=== PATIENT | female | born 1955 | race Caucasian/White ===

== ENCOUNTER 2017-06-26 07:13 | Inpatient (IN) ==
[2017-06-26] MEDS ORDERED: Lidocaine -MPF 1% 2 ML VIAL ID ONE (07:53)
[2017-06-26] MEDS ORDERED: Albuterol 2.5 MG/3 ML NEBULIZER IH ONE (07:53)
[2017-06-26] MEDS: Ringers Solution, Lactated 1,000 ML IVC SCH (07:54)
[2017-06-26] MEDS ORDERED: Clindamycin 600 MG/50 ML 600 MG/50 ML IV.SOLN IVPB ONE ×2 (08:00→08:15)
[2017-06-26] MEDS ORDERED: *HR* FentaNYL (PF) 250 MCG/5 ML VIAL ONE (08:39)
[2017-06-26] MEDS ORDERED: *HR* Midazolam HCl 5 MG/5 ML VIAL IVP ONE (08:39)
[2017-06-26] MEDS ORDERED: *HR* Propofol 200 MG/20 ML VIAL IVP ONE (08:39)
[2017-06-26] MEDS ORDERED: *HR* PHENYLEPHRINE 1,000 MCG/10 ML SYRINGE IVP ONE ×3 (08:40→10:24)
[2017-06-26] MEDS ORDERED: *HR* Rocuronium Bromide 50 MG/5 ML VIAL ONE ×2 (08:40→10:24)
--- NOTE | 2017-06-26 08:42 | History & Physical Report ---
Date of Encounter: 06/26/17 Time of Encounter: 08:41 24 Hour HP Update - Instructions Instructions: If the History and Physical is less than 30 days old and was completed prior to A.M. admission and or procedure and has NOT been updated on calendar day of procedure please complete this update prior to performing procedure. - Update Patient reports changes in Medical Condition: No Changes in examination, assessment, or condition: No Changes in Medication: No Preop tests/diagnostics Reviewed: Yes Pre-Op MRSA Screen: Negative Surgery Remains Indicated: Yes Consent for Planned Operative Procedure(s) Verified: Yes - Pre-Operative Checklist Preoperative Checklist Indicated: Yes Prophylactic Antibiotic Ordered: Yes Home Medications Include Beta Jenae: No Beta Jenae Taken Today (Day of Surgery): No Beta Jenae Taken Yesterday (Day Prior to Surgery): No Is VTE Prophylaxis Indicated?: Yes
[2017-06-26] MEDS ORDERED: Heparin 1,000 UNITS/500 mL 500 ML ONE (08:46)
--- NOTE | 2017-06-26 08:49 | Anesthesia Evaluation PreOp ---
Date of Encounter: 06/26/17 Time of Encounter: 08:47 - Past History Planned Operation: right thoracotomy, lower lobectomy Cardiac History: HTN Pulmonary History: Smoker (2ppd), Pack/yr (>70), COPD BOBBIN FIXER History: Denies Any Significant HX Other Medical History: Thyroid (hypo) Anesthesia History: No Prior Anesthetic Complications, Past Anesthesia (D&C, tubal) Alcohol Use: none Drug use: marijuana Medications and Allergies Paroxetine [Paxil] 20 mg PO DAILY 06/14/17 [History] Tizanidine HCl [Zanaflex] 4 mg PO TID 06/14/17 [History] LORazepam [Ativan] 0.5 mg PO DAILY PRN 06/26/17 [History] Levothyroxine [Synthroid] 50 mcg PO 0630 06/26/17 [History] Lisinopril-HCTZ 20-12.5 [Prinzide 20-12.5] 1 tab PO DAILY 06/26/17 [History] Olodaterol HCl [Striverdi Respimat] 1 puff IH DAILY 06/26/17 [History] 3 Allergy/AdvReac Type Severity Reaction Status Date / Time gabapentin Allergy Rash Verified 06/26/17 07:44 Penicillins Allergy Hives Verified 06/26/17 07:44 pregabalin [From Lyrica] Allergy Rash Verified 06/26/17 07:44 - Meds/Allergy Pre-op Review Medications Reviewed: Yes Allergies Reviewed: Yes Beta Blockers on Current Med List: No Anesthesia Results - Labs Laboratory Tests 06/06/17 06/14/17 06/14/17 10:11 09:52 09:52 Hgb 14.8 Hct 44.1 Plt Count 224 PT 11.0 INR 1.0 Sodium 137 Potassium 3.7 BUN 18 Creatinine 0.92 - Imaging EKG: report reviewed (SINUS BRADYCARDIA INDETERMINATE AXIS POSSIBLE RIGHT VENTRICULAR CONDUCTION DELAY LEFT ANTERIOR FASCICULAR BLOCK POOR R WAVE PROGRESSION) Additional studies: PFTs: Spirometry shows mild airway restrictive disease. No response to inhaled bronchodilators is seen MVV is decreased. Increased residual Lung Volumes reveal hyperinflation and air trapping. Diffusion Capacity is moderately reduced. Flow Volume Loop: Obstructive Anesthesia Exam Selected Entries 06/26/17 07:42 Temperature 97.6 F Pulse Rate 60 Respiratory Rate 18 Blood Pressure 124/63 O2 Sat by Pulse Oximetry 95 Weight: 81kg NPO (# of Hours): 8 - HEENT Pupil (Motor): EOMI Mallampati: II Teeth: Edentulous Oral Opening: Greater than 3 - BOBBIN FIXER LOC: Oriented BOBBIN FIXER Motor: Normal RUE, Normal LUE, Normal RLE, Normal LLE, Normal Face BOBBIN FIXER Sensory: Normal: RUE, LUE, RLE, LLE, Face - Cardiac Rhythm: Regular Murmur: None - Pulmonary Breath Sounds: bilateral Clear Respiratory Effort: Symmetrical Anesthesia Assess/Plan ASA Score: 3 Modified [place] Scale for Level of Consciousness: Cooperative, oriented, and tranquil Anesthetic Plan: General Monitoring Plan: Standard Monitors, A-Line Recovery Plan: PACU (agrees to GA, a-line and epidural. Aware she may require prolonged intubation)
[2017-06-26] MEDS ORDERED: Morphine Sulfate/PF 10mg/10mL 10 MG, Bupivacaine-MPF 0.25% 125 ML in 0.9 % Sodium Chlor... EP SCH (09:30)
[2017-06-26] MEDS ORDERED: MORPHINE SULFATE EP SCH (09:45)
[2017-06-26] MEDS ORDERED: BUPIVACAINE MPF EP SCH (09:45)
[2017-06-26] MEDS ORDERED: [UNRECOGNIZED DRUG - OTHER] EP SCH (09:45)
--- NOTE | 2017-06-26 10:35 | Anesthesia Procedures ---
Date of Encounter: 06/26/17 Time of Encounter: 09:00 Procedures: Anesthesia - Arterial Line Consent obtained: written consent Time out performed: Yes Sedation: Versed (mg): 3 Sedation: Fentanyl (mcg): 100 Supplemental Oxygen via Nasal Cannula (L/min): 2 Size (Gauge): 20 Length (inches): 1 3/4 Technique Used: sterile prep, guide wire technique, direct puncture technique Post-Procedure: line taped into place, dry sterile dressing placed Patient tolerated procedure: well, no complications Complications: none Site: Radial L - Epidural/Spinal Patient ID/Chart reviewed: Yes Patient examined: Yes Sedation: Versed (mg): 3 Sedation: Fentanyl (mcg): 100 Site Prep: Aseptic Technique, Sterile prep and drape, Povidone-Iodine 1% Patient position: upright Local Anesthetic: Lidocaine 1% Amount of Local Anesthetic used: 5 Touhy Needle Gauge: 18 Test Dose (1.5% Lido + Epi): Volume given (mls): 3 Test Dose Result: Negative Loading Dose: 0.25% Marcaine (mls): 10 Loading Dose: Fentanyl (mcg): [address]: Tegaderm Interspace Used: T5-T6 Loss of Resistance (BRENNON): Yes Blood: No CSF: No Paresthesia: No Procedure: Epidural for post op pain management. Good BRENNON. Catheter inserted approx 4cm into epidural space. Paramedian approach used.
[2017-06-26] MEDS ORDERED: Ketorolac 30 MG/ML VIAL ONE (11:12)
[2017-06-26] MEDS ORDERED: Dexamethasone 4 MG/ML VIAL ONE (11:12)
[2017-06-26] MEDS ORDERED: Ondansetron 4 MG/2 ML VIAL ONE (11:12)
[2017-06-26] MEDS ORDERED: Acetaminophen IV 1,000 MG/100 ML INFUS..BTL ONE (11:17)
[2017-06-26] MEDS ORDERED: *HR* Atropine Sulfate 1 MG/10 ML SYRINGE ONE (12:29)
[2017-06-26] MEDS ORDERED: *HR* Morphine 2 MG/ML SYRINGE IVP PRN ×2 (12:52→13:14)
[2017-06-26] MEDS ORDERED: *HR* OxyCODONE/APAP 5/325 TABLET PO PRN (12:52)
[2017-06-26] MEDS ORDERED: *HR* Nalbuphine 20 MG/ML AMPUL IVP PRN (12:52)
[2017-06-26] MEDS ORDERED: Naloxone 0.4 MG/ML INJ IVP PRN ×2 (12:57)
[2017-06-26] MEDS ORDERED: *HR* OxyCODONE Immed Rel 5 MG TABLET PO PRN (13:00)
[2017-06-26] MEDS ORDERED: 0.9 % Sodium Chloride w KCl 20 MEQ/1,000 ML MLS IVC SCH (13:00)
[2017-06-26] MEDS ORDERED: *HR* Dextrose 50 % in Water (Syg) 50 ML SYRINGE IVP PRN (13:02)
[2017-06-26] MEDS ORDERED: Dextrose Gel 15 GM/37.5 ML TUBE PO PRN ×2 (13:02)
[2017-06-26] MEDS ORDERED: D5% in Water 1,000 ML IVC PRN (13:02)
[2017-06-26] MEDS: Ketorolac 15 MG/ML VIAL IVP PRN ×2 (13:12→19:31)
--- NOTE | 2017-06-26 13:16 | Operative Note ---
Date of procedure: 06/26/17 Was there an payroll human resources assistant present: Yes Hse Specialist: Kimo Grider Estimated blood loss (cc): 500 Specimen: hilar and mediastinal lumph nodes, Rt. lowwer lobe Condition: stable Disposition: ICU Procedure in Detail: Preoperative diagnosis. Lung cancer. Postoperative diagnosis. Same. Procedures. Right posterolateral thoracotomy with right lower lobectomy. Surgeon. Dr. Petey Stephens. Hse Specialist. Kimo Grider. The patient is a 61-year -old female with a long history of smoking. She presented with a cavitary mass in her right lower lobe. CAT scan was negative for any adenopathy. PET scan was positive in the mass, but nowhere else. Needle biopsy revealed non-small cell carcinoma. Pulmonary function tests were adequate for resection. She was brought to the operating room where she underwent a general anesthetic and was prepped and draped with the right side up. She did have an epidural catheter for pain control. A standard right posterolateral thoracotomy was performed. Serratus anterior and latissimus dorsi muscles were divided with the Bovie electrocoagulation. The fifth intercostal space was selected and intercostal musculature was bovied off the top of the sixth rib. The lung was deflated. There was a palpable mass in the right lower lobe. No other palpable adenopathy or masses in the chest. Dissection began down into the fissure. The branch to the basilar segments was isolated first. Proximally it was ligated with an 0 silk suture and an 0 silk suture ligature. Distally it was tied off with an 0 silk suture. It was then divided. Next we isolated the branch to the superior segment. Proximally it was ligated with an 0 silk suture and 0 silk suture ligature. Distally it was ligated with an 0 silk suture. It was then divided. Dissection next continued down to the inferior pulmonary vein. The inferior pulmonary ligament was taken up and the inferior pulmonary vein was isolated. Distally it was tied off with an 0 silk suture. Proximally it was ligated with the TA-30 vascular stapling device. It was then divided. The anterior fissure was incomplete and this was divided with a TA-30 nonvascular stapling device. The bronchus in the posterior fissure were divided using a TA 60 nonvascular stapling device. The bronchus was somewhat calcified. The specimen was removed and sent for frozen section for the bronchial margin. The bronchial margin was negative. We then proceeded to biopsy numerous hilar and mediastinal lymph nodes. These were all sent for permanent section. We did place a small piece of fibrillar in the superior mediastinum for hemostasis. We did not place intercostal blocks as the patient had an epidural catheter. We did instill warm saline into the chest. The lung was inflated and there were no significant air leaks. 2 chest tubes were inserted. A 36 straight to the apex of the chest. A 32 right angle chest tube to the bottom of the chest. Intercostal sews were made out of #1 Vicryl in [id number] fashion. Serratus anterior and latissimus dorsi muscles were sewn with #1 Vicryl. Subcutaneous tissues with a 2-0 Vicryl. Skin was closed with a 3-0 Vicryl subcuticular stitch. The patient tolerated the procedure well and was returned intensive care unit in satisfactory and stable condition.
[2017-06-26 13:28] LABS: Hematocrit 41.3 % (35.3-44.9); Hemoglobin 13.1 g/dL (11.5-15.4); Mean Corpuscular HGB Conc 31.7 g/dL (31.6-35.5); Mean Corpuscular Hemoglobin 29.3 pg (28.0-33.3); Mean Corpuscular Volume 92.4 fL (83.0-100.0); Mean Platelet Volume 11.4 fL (9.4-12.4); Platelet Count 246 K/mcL (140-400); Red Blood Count 4.47 M/mcL (3.82-4.97); Red Cell Distribution Width 12.8 % (11.5-14.5)
[2017-06-26] MEDS ORDERED: *HR* Atropine Sulfate 1 MG/10 ML SYRINGE IVP PRN (13:29)
[2017-06-26 13:50] LABS: Lymphocytes # 2.5 K/mcL (0.6-4.6); Monocytes # 1.5 K/mcL (0.0-1.3); Neutrophils # 21.1 K/mcL (1.6-8.9); Platelet Estimate Normal (Normal)
[2017-06-26] MEDS ORDERED: Albumin Human 5% 25.0 GM/500 ML VIAL ONE (15:00)
[2017-06-26 15:38] LABS: ABG Base Excess 0 mEq/L (-2 to 3); ABG HCO3 28 mEq/L (21-27); ABG Oxygen Saturation 95 % (95-98); ABG PCO2 60 mmHg (35-45); ABG PH 7.28 pH Units (7.32-7.45); ABG PO2 87 mmHg (85-104); ABG TCO2 30 mEq/L (20-26)
[2017-06-26] MEDS: Clindamycin 900 MG/50 ML 900 MG/50 ML IV.SOLN IVPB SCH (16:07)
[2017-06-26] MEDS: Insulin LISPRO 300 UNITS/3 ML VIAL SQ SCH (16:12)
[2017-06-26 17:32] LABS: BUN/Creatinine Ratio 24 (6-26); Blood Urea Nitrogen 20 mg/dL (8-23); Calcium 9.2 mg/dL (8.6-10.3); Carbon Dioxide 23 mEq/L (23-29); Chloride 109 mEq/L (98-107); Glucose 162 mg/dL (70-105); Osmolality,Calculated 296 (280-300); Sodium 140 mEq/L (136-145); eGFR For African Americans > 60 (> 60); eGFR For Non-African Americans > 60 (> 60)
[2017-06-26] MEDS: 0.9 % Sodium Chloride w KCl 20 MEQ/1,000 ML MLS IVC SCH (20:22)
[2017-06-26] MEDS ORDERED: Insulin LISPRO 300 UNITS/3 ML VIAL SQ SCH (21:00)
[2017-06-27] MEDS: Clindamycin 900 MG/50 ML 900 MG/50 ML IV.SOLN IVPB SCH (00:01)
[2017-06-27] MEDS: *HR* Promethazine 25 MG/ML VIAL IVP PRN ×2 (02:12→07:43)
[2017-06-27] MEDS: 0.9 % Sodium Chloride w KCl 20 MEQ/1,000 ML MLS IVC SCH (03:25)
[2017-06-27 03:51] LABS: Hematocrit 33.1 % (35.3-44.9); Immature Granulocytes % 0.4 % (0-4); Lymphocytes # 1.2 K/mcL (0.6-4.6); Lymphocytes % 10.2 %; Mean Corpuscular HGB Conc 32.9 g/dL (31.6-35.5); Mean Corpuscular Hemoglobin 29.5 pg (28.0-33.3); Mean Corpuscular Volume 89.5 fL (83.0-100.0); Mean Platelet Volume 11.7 fL (9.4-12.4); Monocytes # 0.8 K/mcL (0.0-1.3); Monocytes % 6.7 %; Neutrophils # 9.8 K/mcL (1.6-8.9); Platelet Count 181 K/mcL (140-400); Segmented Neutrophils % 82.7 %
[2017-06-27 03:52] LABS: Hemoglobin 10.9 g/dL (11.5-15.4)
[2017-06-27 04:00] LABS: BUN/Creatinine Ratio 30 (6-26); Blood Urea Nitrogen 21 mg/dL (8-23); Carbon Dioxide 24 mEq/L (23-29); Chloride 110 mEq/L (98-107); Glucose 117 mg/dL (70-105); Osmolality,Calculated 292 (280-300); Potassium 4.5 mEq/L (3.5-5.1); Sodium 139 mEq/L (136-145); eGFR For African Americans > 60 (> 60); eGFR For Non-African Americans > 60 (> 60)
[2017-06-27 04:58] LABS: ABG Base Excess -2 mEq/L (-2 to 3); ABG HCO3 25 mEq/L (21-27); ABG Oxygen Saturation 93 % (95-98); ABG PCO2 50 mmHg (35-45); ABG PO2 74 mmHg (85-104); ABG TCO2 26 mEq/L (20-26)
[2017-06-27] MEDS: Insulin LISPRO 300 UNITS/3 ML VIAL SQ SCH ×4 (07:43→20:00)
[2017-06-27] MEDS: Ringers Solution, Lactated 1,000 ML IVC SCH ×2 (07:43→11:21)
--- NOTE | 2017-06-27 08:32 | Cardiothoracic Progress Note ---
Date of Encounter: 06/27/17 Time of Encounter: 08:30 - Assessment and plan (1) Lung cancer Current Visit: Yes Status: Acute The assessment and plan as outlined above was discussed with the patient and/or family members who expressed understanding and agreement. All questions were answered. The patient is doing well. Her pain is well controlled. We will transfer her to the floor when a bed becomes available. We will discontinue her Bai catheter and arterial line. Qualifiers: Laterality: right Lung location: lower lobe of lung Qualified Code(s): C34.31 - Malignant neoplasm of lower lobe, right bronchus or lung (2) Primary lung cancer Current Visit: Yes Status: Acute The assessment and plan as outlined above was discussed with the patient and/or family members who expressed understanding and agreement. All questions were answered. Qualifiers: Laterality: right Qualified Code(s): C34.91 - Malignant neoplasm of unspecified part of right bronchus or lung - Subjective Interval history: The patient has mild postoperative pain which is well controlled with the epidural catheter. Vital Signs, Last 4 Hours Pulse Resp BP Pulse Ox 06/27/17 07:00 63 16 98/64 96 06/27/17 06:00 59 16 115/59 95 06/27/17 05:00 56 18 121/63 95 Oxgyen Flow Rate Oxygen Flow Rate (LPM) 3 Clinical Data, last 8 Hours Output, Chest Tube Drainage 30 Amount [Chest tube 2] Output, Chest Tube Drainage 7 Amount [Chest tube 2] Output, Chest Tube Drainage 70 Amount [Chest tube 1] Output, Chest Tube Drainage 50 Amount [Chest tube 1] Weight 06/25/17 06/26/17 06/27/17 23:59 23:59 23:59 Weight 81.193 kg Lungs are clear to percussion and auscultation. Heart is in a normal sinus rhythm with a heart rate in the 50s. She had episodes of sinus bradycardia yesterday, but these were asymptomatic. The chest tubes had minimal drainage, but do have a small air leak. - Labs 06/27/17 03:25 06/27/17 03:25 Lab Results, Last 24 hours 06/26/17 06/26/17 06/27/17 13:13 13:18 03:25 WBC 25.1 H 11.8 H D Hgb 13.1 10.9 L D Hct 41.3 33.1 L Plt Count 246 181 Sodium 140 Potassium 4.0 Chloride 109 H Carbon Dioxide 23 BUN 20 Creatinine 0.84 Glucose 162 H Calcium 9.2 06/27/17 03:25 WBC Hgb Hct Plt Count Sodium 139 Potassium 4.5 Chloride 110 H Carbon Dioxide 24 BUN 21 Creatinine 0.71 Glucose 117 H Calcium 8.0 L - VTE Documentation of Mechanical Device: Intermittent pneumatic compression device Consult Discharge Plan - Plan Referrals: Nicholas Robb MD [Primary Care Provider] -
[2017-06-27] MEDS ORDERED: *HR* Nalbuphine 20 MG/ML AMPUL IVP PRN (09:18)
[2017-06-27] MEDS ORDERED: *HR* Atropine Sulfate 1 MG/10 ML SYRINGE IVP PRN (09:18)
[2017-06-27] MEDS ORDERED: *HR* Dextrose 50 % in Water (Syg) 50 ML SYRINGE IVP PRN (09:18)
[2017-06-27] MEDS ORDERED: D5% in Water 1,000 ML IVC PRN (09:18)
[2017-06-27] MEDS ORDERED: Naloxone 0.4 MG/ML INJ IVP PRN (09:18)
[2017-06-27] MEDS ORDERED: Dextrose Gel 15 GM/37.5 ML TUBE PO PRN ×2 (09:18)
--- NOTE | 2017-06-27 10:28 | Anesthesia Evaluation Post Op ---
Date of Encounter: 06/27/17 Time of Encounter: 10:26 - Vital Signs Vital Signs: Selected Entries 06/27/17 08:00 06/27/17 10:00 Temperature 97.1 F L Pulse Rate 57 Respiratory Rate 17 Blood Pressure 109/56 O2 Sat by Pulse Oximetry 94 Oxygen Flow Rate (LPM) 3 - Lungs Lungs: Clear Ascult./Percussion - Airway Airway: Non-obstructed - Cardiovascular Regular Rate (bradycardi) - Mental Status Mental Status: Alert & Oriented, Answers Appropriately - Pain Pain Scale: 2 Pain Scale used: Numeric (1 - 10) - Nausea Vomiting Nausea Vomiting: Not Present - Hydration Hydration: Tolerates oral liquids, Able to void (epidural site intact. Pain control is good. Hasn't required BTP meds) - Discharge PostOp Status: Transfer Patient to floor (per CT surgery)
[2017-06-27] MEDS: *HR* Morphine 2 MG/ML SYRINGE IVP PRN ×2 (11:22→16:05)
[2017-06-27] MEDS: tiZANidine 4 MG TABLET PO SCH ×3 (11:27→23:08)
[2017-06-27] MEDS: Albuterol 2.5 MG/3 ML NEBULIZER IH SCH ×5 (16:17→23:29)
[2017-06-27] MEDS: *HR* Heparin 5,000 UNIT/ML VIAL SQ SCH (18:40)
[2017-06-27] MEDS: *HR* OxyCODONE/APAP 5/325 TABLET PO PRN ×2 (19:58→23:55)
[2017-06-27] MEDS: MORPHINE SULFATE EP SCH (19:59)
[2017-06-27] MEDS: Ketorolac 15 MG/ML VIAL IVP PRN (19:59)
[2017-06-27] MEDS: [UNRECOGNIZED DRUG - OTHER] EP SCH (19:59)
[2017-06-27] MEDS: BUPIVACAINE MPF EP SCH (19:59)
[2017-06-28] MEDS: *HR* Promethazine 25 MG/ML VIAL IVP PRN (03:31)
[2017-06-28] MEDS: Albuterol 2.5 MG/3 ML NEBULIZER IH SCH ×5 (04:10→19:47)
[2017-06-28 04:12] LABS: Basophils % 0.2 %; Eosinophils % 0.1 %; Hematocrit 35.9 % (35.3-44.9); Hemoglobin 11.6 g/dL (11.5-15.4); Immature Granulocytes % 0.3 % (0-4); Lymphocytes # 1.8 K/mcL (0.6-4.6); Lymphocytes % 16.7 %; Mean Corpuscular HGB Conc 32.3 g/dL (31.6-35.5); Mean Corpuscular Hemoglobin 29.1 pg (28.0-33.3); Mean Corpuscular Volume 90.2 fL (83.0-100.0); Mean Platelet Volume 11.5 fL (9.4-12.4); Monocytes # 0.8 K/mcL (0.0-1.3); Monocytes % 7.1 %; Neutrophils # 7.9 K/mcL (1.6-8.9); Platelet Count 170 K/mcL (140-400); Red Blood Count 3.98 M/mcL (3.82-4.97); Red Cell Distribution Width 12.9 % (11.5-14.5); Segmented Neutrophils % 75.6 %
[2017-06-28] MEDS: *HR* OxyCODONE/APAP 5/325 TABLET PO PRN ×4 (04:23→20:55)
[2017-06-28 04:26] LABS: BUN/Creatinine Ratio 22 (6-26); Blood Urea Nitrogen 17 mg/dL (8-23); Calcium 8.8 mg/dL (8.6-10.3); Carbon Dioxide 27 mEq/L (23-29); Chloride 104 mEq/L (98-107); Glucose 122 mg/dL (70-105); Osmolality,Calculated 287 (280-300); Potassium 3.8 mEq/L (3.5-5.1); Sodium 137 mEq/L (136-145); eGFR For African Americans > 60 (> 60); eGFR For Non-African Americans > 60 (> 60)
[2017-06-28] MEDS: *HR* Heparin 5,000 UNIT/ML VIAL SQ SCH ×2 (06:56→16:02)
--- NOTE | 2017-06-28 07:49 | Cardiothoracic Progress Note ---
Date of Encounter: 06/28/17 Time of Encounter: 07:47 - Assessment and plan (1) Lung cancer Current Visit: Yes Status: Acute The patient is recovering well from her right thoracotomy with right lower lobe lung resection. The pathology is pending. The patient is breathing comfortably with supplemental oxygen. She should continue with aggressive pulmonary toilet and should begin ambulating on suction today. The assessment and plan as outlined above was discussed with the patient and/or family members who expressed understanding and agreement. All questions were answered. Qualifiers: Laterality: right Lung location: lower lobe of lung Qualified Code(s): C34.31 - Malignant neoplasm of lower lobe, right bronchus or lung - Subjective Procedure(s) Performed: POD#2 S/P Right thoracotomy with right lower lobe resection Interval history: The patient is resting comfortably in her hospital bed. She has minimal postoperative pain and this is being addressed with the epidural and intermittent by oral analgesics. She is breathing comfortably. Vital Signs, Last 4 Hours Temp Pulse Resp BP Pulse Ox 06/28/17 07:40 98.3 F 65 17 130/72 97 06/28/17 04:24 98.7 F 69 17 128/63 97 06/28/17 04:11 16 98 Oxgyen Flow Rate Oxygen Flow Rate (LPM) 4 Clinical Data, last 8 Hours Output, Chest Tube Drainage 26 Amount [Chest tube 2] Output, Chest Tube Drainage 15 Amount [Chest tube 2] Output, Chest Tube Drainage 40 Amount [Chest tube 1] Output, Chest Tube Drainage 20 Amount [Chest tube 1] Weight 06/26/17 06/27/17 06/28/17 23:59 23:59 23:59 Weight 81.193 kg - Physical Examination General: Conversant, No Apparent Distress Cardiac: Reg Rate and Rhythm Incision: No signs of infection, Dry/intact dressing Chest tubes: Minimal drainage, Air leak (Small air leak in chest tube #1) Lungs: Normal Breath Sounds, No Wheeze, Rales, Rhonchi Neuro: Alert and responsive, No focal deficits noted Vascular: Normal capillary refill Extremities: No Clubbing, No Cyanosis, No Edema - Labs 06/28/17 03:45 06/28/17 03:45 Lab Results, Last 24 hours 06/28/17 06/28/17 03:45 03:45 WBC 10.5 Hgb 11.6 Hct 35.9 Plt Count 170 Sodium 137 Potassium 3.8 Chloride 104 Carbon Dioxide 27 BUN 17 Creatinine 0.77 Glucose 122 H Calcium 8.8 - VTE Documentation of Mechanical Device: Intermittent pneumatic compression device Consult Discharge Plan - Plan Referrals: Nicholas Robb MD [Primary Care Provider] - 07/05/17 2:30 pm Petey Stephens MD [Partnered Physician] - 07/25/17 2:00 pm
[2017-06-28] MEDS: tiZANidine 4 MG TABLET PO SCH ×3 (08:20→20:27)
[2017-06-28] MEDS: Insulin LISPRO 300 UNITS/3 ML VIAL SQ SCH ×4 (08:28→20:29)
[2017-06-28] MEDS: Ringers Solution, Lactated 1,000 ML IVC SCH (08:30)
--- NOTE | 2017-06-28 10:20 | Anesthesia Progress Note ---
Date of Encounter: 06/28/17 Time of Encounter: 10:17 Anesthesia Note - Note Note: 06/28/17 10:17 Post op day #2 right thoracotomy/lobe resection. Epidural site intact, nontender and no erythema. Small amount of blood under the dressing, no change in 24 hours. Pain well controlled. Patient is mildly somnolent. Vital signs are stable, patient afebrile. Still has chest tube and tomlin in place. Will continue current therapy. 06/28/17 10:20
[2017-06-28] MEDS: *HR* Morphine 2 MG/ML SYRINGE IVP PRN (19:31)
[2017-06-29] MEDS: Albuterol 2.5 MG/3 ML NEBULIZER IH SCH ×7 (00:28→23:42)
[2017-06-29] MEDS: *HR* OxyCODONE/APAP 5/325 TABLET PO PRN ×4 (00:49→20:24)
[2017-06-29] MEDS: *HR* Morphine 2 MG/ML SYRINGE IVP PRN ×2 (03:09→07:52)
[2017-06-29] MEDS: BUPIVACAINE MPF EP SCH ×2 (03:10→11:38)
[2017-06-29] MEDS: [UNRECOGNIZED DRUG - OTHER] EP SCH ×2 (03:10→11:38)
[2017-06-29] MEDS: MORPHINE SULFATE EP SCH ×2 (03:10→11:38)
[2017-06-29] MEDS: *HR* Heparin 5,000 UNIT/ML VIAL SQ SCH ×2 (05:28→18:13)
[2017-06-29 06:21] LABS: Basophils % 0.4 %; Eosinophils # 0.1 K/mcL (0.0-0.6); Eosinophils % 1.1 %; Hemoglobin 11.2 g/dL (11.5-15.4); Immature Granulocytes % 0.2 % (0-4); Lymphocytes # 2.1 K/mcL (0.6-4.6); Lymphocytes % 25.9 %; Mean Corpuscular Hemoglobin 29.4 pg (28.0-33.3); Mean Corpuscular Volume 91.9 fL (83.0-100.0); Mean Platelet Volume 11.4 fL (9.4-12.4); Monocytes # 0.6 K/mcL (0.0-1.3); Monocytes % 7.4 %; Neutrophils # 5.3 K/mcL (1.6-8.9); Platelet Count 168 K/mcL (140-400); Red Blood Count 3.81 M/mcL (3.82-4.97)
[2017-06-29 06:41] LABS: BUN/Creatinine Ratio 14 (6-26); Blood Urea Nitrogen 10 mg/dL (8-23); Calcium 8.9 mg/dL (8.6-10.3); Carbon Dioxide 30 mEq/L (23-29); Chloride 104 mEq/L (98-107); Glucose 109 mg/dL (70-105); Osmolality,Calculated 286 (280-300); Potassium 3.7 mEq/L (3.5-5.1); Sodium 138 mEq/L (136-145); eGFR For African Americans > 60 (> 60); eGFR For Non-African Americans > 60 (> 60)
[2017-06-29] MEDS: Insulin LISPRO 300 UNITS/3 ML VIAL SQ SCH ×4 (07:31→20:24)
[2017-06-29] MEDS: tiZANidine 4 MG TABLET PO SCH ×3 (07:52→20:23)
--- NOTE | 2017-06-29 10:25 | Anesthesia Procedures ---
Date of Encounter: 06/29/17 Time of Encounter: 10:28 Procedures: Anesthesia - Epidural Rounding Post Op Day #: 3 Procedure: right thoracotomy Pain Control: Adequate Breakthrough Pain Meds: Yes Vital Signs: Vital Signs/O2 Sat, Most Current Temp Pulse Resp BP Pulse Ox 98.1 F 64 18 126/69 96 06/29/17 07:09 06/29/17 07:55 06/29/17 07:38 06/29/17 07:09 06/29/17 07:38 Mental Status: responsive, sedated, Comment: (somnolent but easily arousible) Catheter Site Dressing Intact: Yes (dressing ends curling, additional tegaderm applied) Erythema: No Pruritus: present, tolerable Signs of Infection At Catheter Site: No Plan: Continue current rate
[2017-06-29] MEDS: Ringers Solution, Lactated 1,000 ML IVC SCH (11:38)
--- NOTE | 2017-06-29 12:41 | Cardiothoracic Progress Note ---
Date of Encounter: 06/29/17 Time of Encounter: 12:39 Discussion with patient/family: Discussed planned for increased activity will leave chest tubes to suction while at bedside. May ambulate on waterseal discussed plan with the patient, daughter and nursing at bedside.. - Subjective Procedure(s) Performed: Patient seen and examined. She is sitting up in bed with her daughter bedside. Nursing staff she is postoperative day 3 from a right lower lobectomy. She has no epidural in place with acceptable pain control. Discussed plans for getting out of bed for meals and ambulating in [place] on waterseal. Currently chest tubes are to suction. Discussed plans for increased activity increased coughing, deep breathing and use incentive spirometer with patient and daughter. Vital Signs, Last 4 Hours Temp Pulse Resp BP Pulse Ox 06/29/17 11:33 18 98 06/29/17 11:18 97.7 F 59 16 96/48 97 Oxgyen Flow Rate Oxygen Flow Rate (LPM) 2 Clinical Data, last 8 Hours Output, Chest Tube Drainage 20 Amount [Chest tube 2] Output, Chest Tube Drainage 20 Amount [Chest tube 1] - Physical Examination Sternum: Other Pacing Wires: Other (Both chest tubes to suction, small notable air leak in 1 tube, both with serous drainage) - Labs 06/29/17 06:00 06/29/17 06:00 Lab Results, Last 24 hours 06/29/17 06/29/17 06:00 06:00 WBC 8.2 Hgb 11.2 L Hct 35.0 L Plt Count 168 Sodium 138 Potassium 3.7 Chloride 104 Carbon Dioxide 30 H BUN 10 Creatinine 0.69 Glucose 109 H Calcium 8.9 - Imaging Chest Xray: other (Chest x-ray reviewed tubes in good position no obvious pneumothorax) - VTE Documentation of Mechanical Device: Intermittent pneumatic compression device Consult Discharge Plan - Plan Referrals: Nicholas Robb MD [Primary Care Provider] - 07/05/17 2:30 pm Petey Stephens MD [Partnered Physician] - 07/25/17 2:00 pm
[2017-06-29] MEDS: Ketorolac 15 MG/ML VIAL IVP PRN (18:13)
[2017-06-30] MEDS: *HR* OxyCODONE/APAP 5/325 TABLET PO PRN ×4 (00:58→17:03)
[2017-06-30] MEDS: Albuterol 2.5 MG/3 ML NEBULIZER IH SCH ×7 (03:44→19:35)
[2017-06-30] MEDS: *HR* Heparin 5,000 UNIT/ML VIAL SQ SCH ×2 (05:54→17:03)
[2017-06-30] MEDS: tiZANidine 4 MG TABLET PO SCH ×3 (08:23→20:01)
[2017-06-30] MEDS: Ketorolac 15 MG/ML VIAL IVP PRN ×2 (08:24→18:55)
[2017-06-30] MEDS: Insulin LISPRO 300 UNITS/3 ML VIAL SQ SCH ×4 (08:25→20:01)
[2017-06-30] MEDS: BUPIVACAINE MPF EP SCH (09:45)
[2017-06-30] MEDS: MORPHINE SULFATE EP SCH (09:45)
[2017-06-30] MEDS: [UNRECOGNIZED DRUG - OTHER] EP SCH (09:45)
--- NOTE | 2017-06-30 11:15 | Cardiothoracic Progress Note ---
Date of Encounter: 06/30/17 Time of Encounter: 11:13 Discussion with patient/family: Discussed plan for increased activity, regular use of incentive spirometer, weaning oxygen as tolerated. Will leave chest tubes to suction. - Subjective Procedure(s) Performed: Patient seen and examined. Had uneventful night according to patient and report from nursing staff. Notably blood pressure was a little low this morning however now improved. Patient up in chair and denies any lightheadedness or dizziness. Her pain is under reasonable control with her epidural and supplemental pain meds for breakthrough pain. She has not had a bowel movement yet but is receiving suppositories. Her chest tubes demonstrated minimal drainage small persistent intermittent air leak and on suction at this time. Wound remained clean and dry. Discussed the importance of increased activity and weaning oxygen as tolerated. Currently on 2 L nasal cannula sats in the mid 90s. Vital Signs, Last 4 Hours Temp Pulse Resp BP Pulse Ox 06/30/17 10:51 55 74/44 95 06/30/17 10:15 57 78/54 06/30/17 10:10 70/40 06/30/17 10:05 60 70/47 96 06/30/17 08:20 80 105/56 95 06/30/17 07:41 18 95 06/30/17 07:27 98.1 F 73 18 126/66 94 Oxgyen Flow Rate Oxygen Flow Rate (LPM) 2 Clinical Data, last 8 Hours Output, Chest Tube Drainage 30 Amount [Chest tube 2] Output, Chest Tube Drainage 0 Amount [Chest tube 2] Output, Chest Tube Drainage 20 Amount [Chest tube 1] Output, Chest Tube Drainage 0 Amount [Chest tube 1] Weight 06/28/17 06/29/17 06/30/17 23:59 23:59 23:59 Weight 80.9 kg - Physical Examination Incision: Other (Dressings intact, clean and dry) Chest tubes: Other (2 chest tubes to suction, one with small intermittent air leak minimal serous drainage) - Labs 06/29/17 06:00 06/29/17 06:00 - VTE Documentation of Mechanical Device: Intermittent pneumatic compression device Consult Discharge Plan - Plan Referrals: Nicholas Robb MD [Primary Care Provider] - 07/05/17 2:30 pm Petey Stephens MD [Partnered Physician] - 07/25/17 2:00 pm
--- NOTE | 2017-06-30 16:43 | Anesthesia Procedures ---
Date of Encounter: 06/30/17 Time of Encounter: 16:41 Procedures: Anesthesia - Epidural Rounding Post Op Day #: 4 Procedure: right thoracotomy Pain Control: Adequate Breakthrough Pain Meds: Yes Vital Signs: Vital Signs/O2 Sat, Most Current Temp Pulse Resp BP Pulse Ox 98.1 F 75 16 111/69 93 06/30/17 16:28 06/30/17 16:28 06/30/17 16:39 06/30/17 16:28 06/30/17 16:39 Mental Status: awake, alert, responsive Catheter Site Dressing Intact: Yes Erythema: No Pruritus: tolerable Signs of Infection At Catheter Site: No Plan: Continue current rate
[2017-06-30] MEDS: *HR* Morphine 2 MG/ML SYRINGE IVP PRN (20:00)
[2017-07-01] MEDS: Albuterol 2.5 MG/3 ML NEBULIZER IH SCH ×7 (00:41→23:35)
[2017-07-01] MEDS: *HR* OxyCODONE/APAP 5/325 TABLET PO PRN ×6 (01:03→23:45)
[2017-07-01] MEDS: *HR* Heparin 5,000 UNIT/ML VIAL SQ SCH ×2 (05:16→17:32)
[2017-07-01] MEDS: *HR* Morphine 2 MG/ML SYRINGE IVP PRN ×2 (06:01→21:01)
[2017-07-01] MEDS: Insulin LISPRO 300 UNITS/3 ML VIAL SQ SCH ×4 (08:08→20:45)
[2017-07-01] MEDS: tiZANidine 4 MG TABLET PO SCH ×2 (08:10→20:37)
[2017-07-01] MEDS: Ringers Solution, Lactated 1,000 ML IVC SCH ×2 (08:13→11:41)
--- NOTE | 2017-07-01 09:20 | Cardiothoracic Progress Note ---
Date of Encounter: 07/01/17 Time of Encounter: 09:19 - Assessment and plan (1) Lung cancer Current Visit: Yes Status: Acute I discontinued the chest tube suction. We will check a chest x-ray. Hopefully , the chest tubes can come out soon. Qualifiers: Laterality: right Lung location: lower lobe of lung Qualified Code(s): C34.31 - Malignant neoplasm of lower lobe, right bronchus or lung (2) Primary lung cancer Current Visit: Yes Status: Acute The assessment and plan as outlined above was discussed with the patient and/or family members who expressed understanding and agreement. All questions were answered. Qualifiers: Laterality: right Qualified Code(s): C34.91 - Malignant neoplasm of unspecified part of right bronchus or lung - Subjective Interval history: The patient complains of mild postoperative pain. Vital Signs, Last 4 Hours Temp Pulse Resp BP Pulse Ox 07/01/17 08:24 69 20 95 07/01/17 08:20 75 07/01/17 07:29 19 96 07/01/17 07:10 98 F 70 19 141/73 94 Oxgyen Flow Rate Oxygen Flow Rate (LPM) 2 Clinical Data, last 8 Hours Output, Chest Tube Drainage 30 Amount [Chest tube 2] Output, Chest Tube Drainage 0 Amount [Chest tube 2] Output, Chest Tube Drainage 0 Amount [Chest tube 2] Output, Chest Tube Drainage 0 Amount [Chest tube 1] Output, Chest Tube Drainage 0 Amount [Chest tube 1] Output, Chest Tube Drainage 0 Amount [Chest tube 1] Output, Urine Amount 0 Weight 06/29/17 06/30/17 07/01/17 23:59 23:59 23:59 Weight 80.9 kg 82.1 kg Lungs are clear to percussion and auscultation. Heart is in a normal sinus rhythm. Her incision is healing well without signs of infection. Chest tube drainage is minimal and I do not see an air leak. - Labs 06/29/17 06:00 06/29/17 06:00 - VTE Documentation of Mechanical Device: Intermittent pneumatic compression device Consult Discharge Plan - Plan Referrals: Nicholas Robb MD [Primary Care Provider] - 07/05/17 2:30 pm Petey Stephens MD [Partnered Physician] - 07/25/17 2:00 pm
[2017-07-01] MEDS: BUPIVACAINE MPF EP SCH (15:49)
[2017-07-01] MEDS: [UNRECOGNIZED DRUG - OTHER] EP SCH (15:49)
[2017-07-01] MEDS: MORPHINE SULFATE EP SCH (15:49)
--- NOTE | 2017-07-01 19:19 | Anesthesia Procedures ---
Date of Encounter: 07/01/17 Time of Encounter: 19:00 Procedures: Anesthesia - Epidural Rounding Post Op Day #: 5 Procedure: Thoracotomy Pain Control: Good Breakthrough Pain Meds: Yes Vital Signs: Vital Signs Temp Pulse Resp BP Pulse Ox 07/01/17 18:59 99.2 F 72 20 127/77 96 07/01/17 17:48 67 20 98 07/01/17 17:46 71 07/01/17 16:14 98.2 F 59 21 138/70 95 07/01/17 15:26 16 98 07/01/17 14:46 66 20 95 07/01/17 11:51 58 07/01/17 11:46 58 20 95 07/01/17 11:09 16 98 07/01/17 10:49 98.3 F 58 22 107/59 96 07/01/17 10:44 61 22 96 07/01/17 08:24 69 20 95 07/01/17 08:20 75 07/01/17 07:29 19 96 07/01/17 07:10 98 F 70 19 141/73 94 07/01/17 04:15 20 97 07/01/17 03:36 98 F 71 20 137/63 95 07/01/17 00:41 20 96 06/30/17 23:44 98 F 62 18 98/55 96 06/30/17 19:35 16 96 Intake and Output 07/01/17 07/01/17 07/01/17 07:59 15:59 23:59 Intake Total 0 / 0 240 / 240 Output Total 1300 / 1300 1005 / 1005 350 / 350 Balance -1300 / -1300 -765 / -765 -350 / -350 Intake: Oral 0 / 0 240 / 240 Output: Urine 0 / 0 Catheter 1250 / 1250 900 / 900 350 / 350 Chest Tube Drainage 50 / 50 105 / 105 Chest tube 1 20 / 20 50 / 50 Chest tube 2 30 / 30 55 / 55 Other: Meal Lunch Percent of Meal Consumed 100% Weight 82.1 kg Blood Glucose* 113 120 100 Patient Weight 07/01/17 23:59 Weight 82.1 kg Mental Status: awake, alert, responsive Catheter Site Dressing Intact: Yes Erythema: No Pruritus: not present Signs of Infection At Catheter Site: No Plan: Continue current rate Anes Supervising Prov Stmt: Segundo Gant MD
[2017-07-02] MEDS: *HR* Morphine 2 MG/ML SYRINGE IVP PRN ×4 (02:58→20:47)
[2017-07-02] MEDS: *HR* Promethazine 25 MG/ML VIAL IVP PRN (02:59)
[2017-07-02] MEDS: Albuterol 2.5 MG/3 ML NEBULIZER IH SCH ×6 (04:22→23:41)
[2017-07-02 05:41] LABS: Basophils % 0.3 %; Eosinophils # 0.2 K/mcL (0.0-0.6); Eosinophils % 2.7 %; Hematocrit 31.1 % (35.3-44.9); Immature Granulocytes % 0.3 % (0-4); Lymphocytes # 1.7 K/mcL (0.6-4.6); Lymphocytes % 27.1 %; Mean Corpuscular HGB Conc 32.2 g/dL (31.6-35.5); Mean Corpuscular Hemoglobin 29.3 pg (28.0-33.3); Mean Corpuscular Volume 91.2 fL (83.0-100.0); Mean Platelet Volume 11.3 fL (9.4-12.4); Monocytes # 0.6 K/mcL (0.0-1.3); Monocytes % 9.5 %; Neutrophils # 3.7 K/mcL (1.6-8.9); Nucleated Red Blood Cells 0.6 /100 WBC (0); Platelet Count 181 K/mcL (140-400); Red Blood Count 3.41 M/mcL (3.82-4.97); Segmented Neutrophils % 60.1 %
[2017-07-02 06:00] LABS: BUN/Creatinine Ratio 13 (6-26); Blood Urea Nitrogen 9 mg/dL (8-23); Calcium 8.8 mg/dL (8.6-10.3); Carbon Dioxide 29 mEq/L (23-29); Chloride 104 mEq/L (98-107); Glucose 106 mg/dL (70-105); Osmolality,Calculated 287 (280-300); Potassium 3.8 mEq/L (3.5-5.1); Sodium 139 mEq/L (136-145); eGFR For African Americans > 60 (> 60); eGFR For Non-African Americans > 60 (> 60)
[2017-07-02] MEDS: *HR* Heparin 5,000 UNIT/ML VIAL SQ SCH ×2 (06:24→17:02)
[2017-07-02] MEDS: *HR* OxyCODONE/APAP 5/325 TABLET PO PRN ×3 (06:30→17:10)
[2017-07-02] MEDS: Insulin LISPRO 300 UNITS/3 ML VIAL SQ SCH ×4 (07:56→20:39)
--- NOTE | 2017-07-02 09:16 | Cardiothoracic Progress Note ---
Date of Encounter: 07/02/17 Time of Encounter: 09:13 - Assessment and plan (1) Lung cancer Current Visit: Yes Status: Acute The chest tubes were removed. The epidural catheter can be removed by anesthesia. Several hours after this the Bai catheter could be removed. If all goes well, the patient can be discharged in 1-2 days. Qualifiers: Laterality: right Lung location: lower lobe of lung Qualified Code(s): C34.31 - Malignant neoplasm of lower lobe, right bronchus or lung (2) Primary lung cancer Current Visit: Yes Status: Acute The assessment and plan as outlined above was discussed with the patient and/or family members who expressed understanding and agreement. All questions were answered. Qualifiers: Laterality: right Qualified Code(s): C34.91 - Malignant neoplasm of unspecified part of right bronchus or lung - Subjective Interval history: The patient complains of mild chest pain around the chest tube sites. Vital Signs, Last 4 Hours Temp Pulse Resp BP Pulse Ox 07/02/17 08:00 58 07/02/17 07:45 98.5 F 57 17 136/70 92 07/02/17 07:28 16 91 Oxgyen Flow Rate Oxygen Flow Rate (LPM) 2 Clinical Data, last 8 Hours Output, Chest Tube Drainage 10 Amount [Chest tube 2] Output, Chest Tube Drainage 0 Amount [Chest tube 1] Output, Chest Tube Drainage 50 Amount [Chest tube 1] Weight 06/30/17 07/01/17 07/02/17 23:59 23:59 23:59 Weight 80.9 kg 82.1 kg Lungs are clear to percussion and auscultation. Heart is in a sinus rhythm. The chest tubes had minimal drainage and there is no air leak. Chest x-ray done this morning off suction reveals no pneumothorax. - Labs 07/02/17 05:06 07/02/17 05:06 Lab Results, Last 24 hours 07/02/17 07/02/17 05:06 05:06 WBC 6.2 Hgb 10.0 L Hct 31.1 L Plt Count 181 Sodium 139 Potassium 3.8 Chloride 104 Carbon Dioxide 29 BUN 9 Creatinine 0.68 Glucose 106 H Calcium 8.8 - VTE Documentation of Mechanical Device: Intermittent pneumatic compression device Consult Discharge Plan - Plan Referrals: Nicholas Robb MD [Primary Care Provider] - 07/16/17 9:00 am Petey Stephens MD [Partnered Physician] - 07/25/17 2:00 pm
[2017-07-02] MEDS: tiZANidine 4 MG TABLET PO SCH (20:38)
[2017-07-02] MEDS: MORPHINE SULFATE EP SCH (23:41)
[2017-07-02] MEDS: [UNRECOGNIZED DRUG - OTHER] EP SCH (23:41)
[2017-07-02] MEDS: BUPIVACAINE MPF EP SCH (23:41)
[2017-07-03] MEDS: *HR* OxyCODONE/APAP 5/325 TABLET PO PRN ×2 (01:24→06:42)
[2017-07-03] MEDS: Albuterol 2.5 MG/3 ML NEBULIZER IH SCH ×5 (04:28→20:10)
[2017-07-03] MEDS: *HR* Morphine 2 MG/ML SYRINGE IVP PRN (04:45)
[2017-07-03] MEDS: *HR* Promethazine 25 MG/ML VIAL IVP PRN (04:45)
[2017-07-03] MEDS: *HR* Heparin 5,000 UNIT/ML VIAL SQ SCH ×2 (06:38→16:44)
--- NOTE | 2017-07-03 06:55 | Anesthesia Procedures ---
Date of Encounter: 07/02/17 Time of Encounter: 23:00 Procedures: Anesthesia - Epidural Rounding Procedure: Epidural cather d/c Pain Control: Good Vital Signs: Vital Signs/O2 Sat/Glucose, Most Current Temp Pulse Resp BP Pulse Ox 07/03/17 04:29 14 98 07/03/17 04:17 97.9 F 57 16 148/64 98 07/03/17 03:45 62 Mental Status: awake, alert, responsive Erythema: No Pruritus: not present Signs of Infection At Catheter Site: No Epidural Catheter removed; Tip Intact: Yes (no complaints. dressing placed. )
[2017-07-03] MEDS: Insulin LISPRO 300 UNITS/3 ML VIAL SQ SCH ×4 (07:36→20:48)
--- NOTE | 2017-07-03 09:33 | Cardiothoracic Progress Note ---
Date of Encounter: 07/03/17 Time of Encounter: 09:30 - Assessment and plan (1) Lung cancer Current Visit: Yes Status: Acute We will keep the patient in the hospital today for increased pain control. We will plan to discharge her tomorrow. Qualifiers: Laterality: right Lung location: lower lobe of lung Qualified Code(s): C34.31 - Malignant neoplasm of lower lobe, right bronchus or lung (2) Primary lung cancer Current Visit: Yes Status: Acute The assessment and plan as outlined above was discussed with the patient and/or family members who expressed understanding and agreement. All questions were answered. Qualifiers: Laterality: right Qualified Code(s): C34.91 - Malignant neoplasm of unspecified part of right bronchus or lung - Subjective Interval history: The patient has increased incisional pain since the epidural catheter was removed. She has been urinating without difficulty since the Bai catheter was removed. Vital Signs, Last 4 Hours Temp Pulse Resp BP Pulse Ox 07/03/17 07:45 63 07/03/17 07:23 16 95 07/03/17 07:07 98.3 F 59 16 111/84 97 Oxgyen Flow Rate Oxygen Flow Rate (LPM) 2 Weight 07/01/17 07/02/17 07/03/17 23:59 23:59 23:59 Weight 82.1 kg 83.7 kg Lungs are clear to percussion and auscultation. Heart is in a normal sinus rhythm. Her incision is healing well without signs of infection. Chest x-ray reveals a tiny apical pneumothorax. - Labs 07/02/17 05:06 07/02/17 05:06 - VTE Documentation of Mechanical Device: Intermittent pneumatic compression device Consult Discharge Plan - Plan Referrals: Nicholas Robb MD [Primary Care Provider] - 07/16/17 9:00 am Petey Stephens MD [Partnered Physician] - 07/25/17 2:00 pm
[2017-07-03] MEDS: *HR* OxyCODONE/APAP 10/325 TABLET PO PRN ×3 (11:01→20:47)
[2017-07-03] MEDS: Ibuprofen 600 MG TABLET PO SCH ×2 (15:28→16:44)
[2017-07-03] MEDS: [UNRECOGNIZED DRUG - OTHER] EP SCH (16:41)
[2017-07-03] MEDS: BUPIVACAINE MPF EP SCH (16:41)
[2017-07-03] MEDS: MORPHINE SULFATE EP SCH (16:41)
--- NOTE | 2017-07-03 17:06 | Event Note ---
Date of Encounter: 07/03/17 Time of Encounter: 17:05 The patient has been urinating without difficulty since the epidural catheter was removed. However, she has had urgency, frequency, dysuria and foul- smelling urine. She most likely has a urinary tract infection. I will check a urinalysis and urine culture. I will start her on by mouth antibiotics pending the results.
[2017-07-03] MEDS: Sulfamethoxazole/Trimeth DS 1 EACH TABLET PO SCH (20:47)
[2017-07-03] MEDS: tiZANidine 4 MG TABLET PO SCH (20:47)
[2017-07-03] MEDS: Ringers Solution, Lactated 1,000 ML IVC SCH ×2 (20:49→20:51)
[2017-07-03 21:17] LABS: Bilirubin,Urine Negative (Negative); Blood,Urine Small (Negative); Clarity,Urine Cloudy (Clear); Color,Urine Yellow (Yellow); Glucose,Urine (UA) Normal (Normal); Ketones,Urine Negative (Negative); Leukocyte Esterase,Urine Moderate (Negative); Nitrite,Urine Positive (Negative); PH,Urine 7.5 pH Units (5.0-8.0); Protein,Urine Negative (Neg-Trace); Specific Gravity,Urine 1.017 (1.010-1.025); Urobilinogen,Urine Normal (Normal)
[2017-07-03 21:18] LABS: Bacteria,Urine Many per hpf (None-Few); Hyaline Casts,Urine None Seen per lpf (None-Few); Squamous Epithelial Cell,Urine Few per lpf (None-Few); WBC,Urine TNTC per hpf (0-3)
[2017-07-04] MEDS: Albuterol 2.5 MG/3 ML NEBULIZER IH SCH ×4 (00:17→11:18)
[2017-07-04] MEDS: Ibuprofen 600 MG TABLET PO SCH ×3 (00:29→11:24)
[2017-07-04] MEDS: *HR* OxyCODONE/APAP 10/325 TABLET PO PRN ×4 (00:47→12:53)
[2017-07-04] MEDS: *HR* Heparin 5,000 UNIT/ML VIAL SQ SCH (06:13)
[2017-07-04] MEDS: Insulin LISPRO 300 UNITS/3 ML VIAL SQ SCH ×2 (08:42→11:24)
[2017-07-04] MEDS: Sulfamethoxazole/Trimeth DS 1 EACH TABLET PO SCH (08:42)
[2017-07-04] MEDS: BUPIVACAINE MPF EP SCH (08:44)
[2017-07-04] MEDS: [UNRECOGNIZED DRUG - OTHER] EP SCH (08:44)
[2017-07-04] MEDS: MORPHINE SULFATE EP SCH (08:44)
[2017-07-04] MEDS: Ringers Solution, Lactated 1,000 ML IVC SCH (08:45)
--- NOTE | 2017-07-04 09:36 | Discharge Summary ---
Orders not resulted at time of discharge: Pending orders 06/26/17 Red Blood Cells [BBK] Routine 07/03/17 20:50 Culture,Urine [RM] Routine Date of Encounter: 07/04/17 Time of Encounter: 09:30 - Discharge Diagnosis (1) Lung cancer Priority: Primary Status: Acute Qualifiers: Laterality: right Lung location: lower lobe of lung Qualified Code(s): C34.31 - Malignant neoplasm of lower lobe, right bronchus or lung (2) Primary lung cancer Priority: Primary Status: Acute Qualifiers: Laterality: right Qualified Code(s): C34.91 - Malignant neoplasm of unspecified part of right bronchus or lung - Hospital Course Hospital course: Ms. To is a 61 year old female The patient is a 61-year-old female who was an active smoker and continued to smoke up until the time of surgery. She presented with a right lower lobe lung mass. Needle biopsy was positive for non-small cell carcinoma. The rest of her metastatic workup was negative. Pulmonary function tests were adequate for resection. On 06/26/2017, I took her to the operating room for right posterolateral thoracotomy with right lower lobectomy and biopsy of the mediastinal and hilar lymph nodes. Pathology returned with negative lymph nodes. However, she was found to have 2 separate lung cancers in the right lower lobe, making her T3. Postoperatively the patient was placed in the ICU and had an epidural catheter for pain relief. On June 27, we transferred her to the floor. On July 01, I discontinued chest tube suction. The chest tubes were removed on July 02. Serial chest x-rays after this revealed a tiny, stable apical pneumothorax. On July 04, chest x-ray revealed a small pleural effusion and some elevation of her right hemidiaphragm. The Bai catheter was removed on July 02. It had been removed on postoperative day #1, but had to be replaced because of urinary retention. After removal on the , she had no difficulty urinating. However, she had some dysuria and frequency. Urinalysis revealed too numerous to count white blood cells. She was started on by mouth antibiotics. On the , her urinary symptoms were gone. The patient otherwise did well and was discharged on July 04. At that time, she was afebrile. O2 saturation was 95 on room air. Lungs were clear to percussion and auscultation. Heart was in a normal sinus rhythm. Her incision was healing well without signs of infection. Discharge medications are on the [facility] and include Percocet for pain. I did check the [facility] automated Rx reporting system. She was postoperative and was given a one-week supply. Appropriate precautions were given. She was to return to her previous and regular diet. She was to walk as much as possible, but to avoid heavy lifting for a total of 3 months after surgery. She was to avoid driving for 1 month. She is to follow-up and see me in the office in 4 weeks with a chest x-ray PA and lateral as directed. She was to follow-up with her primary care doctor and oncologist as directed. She was to call sooner for any difficulties. - Time Spent with Patient Total time spent providing and/or coordinating discharge services: - Discharge Medications Prescriptions: OxyCODONE/APAP 10/325 [Percocet 10/325 MG] 1 each PO Q4HR PRN 7 Days #30 tablet PRN Reason: Pain Ibuprofen [Motrin] 600 mg PO TID #60 tablet Sulfamethoxazole/Trimeth DS [Bactrim Ds] 1 each PO BID #14 tablet Home Medications: Paroxetine [Paxil] 20 mg PO DAILY 06/14/17 [History] Tizanidine HCl [Zanaflex] 4 mg PO TID 06/14/17 [History] LORazepam [Ativan] 0.5 mg PO DAILY PRN 06/26/17 [History] Levothyroxine [Synthroid] 50 mcg PO 0630 06/26/17 [History] Lisinopril-HCTZ 20-12.5 [Prinzide 20-12.5] 1 tab PO DAILY 06/26/17 [History] Olodaterol HCl [Striverdi Respimat] 1 puff IH DAILY 06/26/17 [History] Ibuprofen [Motrin] 600 mg PO TID #60 tablet 07/04/17 [Rx] OxyCODONE/APAP 10/325 [Percocet 10/325 MG] 1 each PO Q4HR PRN 7 Days #30 tablet 07/04/17 [Rx] Sulfamethoxazole/Trimeth DS [Bactrim Ds] 1 each PO BID #14 tablet 07/04/17 [Rx] Allergies/Adverse Reactions: 3 Allergy/AdvReac Type Severity Reaction Status Date / Time gabapentin Allergy Rash Verified 06/26/17 07:44 Penicillins Allergy Hives Verified 06/26/17 07:44 pregabalin [From Lyrica] Allergy Rash Verified 06/26/17 07:44 Date of admission: 06/26/17 10:36 Primary care physician: Nicholas Robb MD Consults: 06/26/17 12:57 Consult to [employer] [CONS] Routine Reason for SW Consult: lung cancer 06/27/17 09:18 Consult for Pharmacy Education [CONS] Routine Reason for Consult: Post-Op Heart Call Completed: Yes Procedure(s) Performed: 06/26/2017. Right thoracotomy with right lower lobectomy and biopsy of the mediastinal and hilar lymph nodes. Discharging clinician: Petey Stephens Anticipated date of discharge: 07/04/17 Physical Examination Vital Signs, Last 4 Hours Temp Pulse Resp BP Pulse Ox 07/04/17 07:38 16 95 07/04/17 07:11 97.9 F 57 16 132/64 92 - Patient Status Disposition: Home, Self-Care Functional capacity at discharge: independent ambulation Overall status at discharge: patient is progressing back to baseline - Discharge Instructions Follow Up With: Nicholas Robb MD [Primary Care Provider] - 07/16/17 9:00 am Petey Stephens MD [Partnered Physician] - 07/25/17 2:00 pm - VTE Documentation of Mechanical Device: Intermittent pneumatic compression device
[2017-07-04 14:18] VITALS: BP 134/74
== END 2017-07-04 15:47 | disposition home or self-care (01) | DRG 136 ==
LOC: SAMDAY 07:13 → ICNU 10:36 → 2NNU 06-27 13:45 → 3NENU 07-04 11:50
PROVIDERS: ADMIT Thoracic Surgery (Cardiothoracic Vascular Surgery); ATTEND Thoracic Surgery (Cardiothoracic Vascular Surgery)

== ENCOUNTER 2017-11-27 13:10 | Observation (INO) ==
[2017-11-27] MEDS ORDERED: *HR* Metoprolol 5 MG/5 ML VIAL IVP ONE (13:25)
[2017-11-27] MEDS ORDERED: 0.9 % Sodium Chloride 1,000 ML ONE (13:25)
[2017-11-27] MEDS ORDERED: 0.9 % Sodium Chloride 1,000 ML IVC ONE (13:33)
[2017-11-27] MEDS ORDERED: Isovue-370 500 ML INFUS..BTL IV ONE (13:34)
--- NOTE | 2017-11-27 13:45 | Emergency Department Note ---
Disposition Clinical Impression: Supraventricular tachycardia, Shortness of breath Lung cancer Qualifiers: Laterality: right Lung location: lower lobe of lung Qualified Code(s): C34.31 - Malignant neoplasm of lower lobe, right bronchus or lung Disposition: Admitted As Inpatient Condition: Good Time of Disposition: 17:05 General Adult HPI - General Chief complaint: ED Arrhythmia/Palpitations Stated complaint: Chest burning; clammy Time Seen by Provider: 11/27/17 13:18 Source: patient Limitations: no limitations Nursing Notes Reviewed: Yes Vital Signs Reviewed: Yes - History of Present Illness HPI Narrative: Several day history of diaphoresis. Not feeling well. No nausea vomiting or diarrhea. Feeling like her heart is racing today. History of lung cancer with a right lower lobe resection in June. Denies any chest pain. Does report that the feeling catches her breath. No cardiac history. Pain Scale: 0 - Related Data Home Medications Medication Instructions Recorded Confirmed Levothyroxine [Synthroid] 50 mcg PO 0630 06/26/17 07/30/17 Olodaterol HCl [Striverdi Respimat] 1 puff IH DAILY 06/26/17 07/30/17 Ibuprofen [Motrin] 600 mg PO TID PRN 07/30/17 07/30/17 raNITIdine HCl [Zantac] 150 mg PO BID 07/30/17 07/30/17 Albuterol Sulfate [Ventolin Hfa] 2 puff IH Q6H PRN 11/27/17 11/27/17 Budesonide/Formoterol 160/4.5 2 puff IH BIDR 11/27/17 11/27/17 [Symbicort 160/4.5] Lisinopril [Zestril] 5 mg PO DAILY 11/27/17 11/27/17 Montelukast [Singulair] 10 mg PO DAILY 11/27/17 11/27/17 Nabumetone [Relafen] 500 mg PO BID 11/27/17 11/27/17 Paroxetine [Paxil] 30 mg PO DAILY 11/27/17 11/27/17 Previous Rx's Medication Instructions Recorded Cyclobenzaprine [Flexeril] 10 mg PO BID #20 tablet 09/16/17 Allergies Allergy/AdvReac Type Severity Reaction Status Date / Time gabapentin Allergy Rash Verified 07/30/17 13:58 Penicillins Allergy Hives Verified 07/30/17 13:58 pregabalin [From Lyrica] Allergy Rash Verified 07/30/17 13:58 All systems ED: reviewed and negative except as stated. Review of Systems: As Per HPI Constitutional: Reports: chills. Denies: fever ENT ED: Denies: congestion Cardiovascular: Reports: palpitations. Denies: chest pain, syncope Respiratory: Reports: cough, dyspnea, sputum production Gastrointestinal: Denies: abdominal pain, nausea, vomiting, diarrhea Genitourinary: Denies: urgency, dysuria, frequency, hematuria Musculoskeletal: Denies: back pain, neck pain Integumentary: Denies: rash Neurological: Reports: weakness Past Medical History - Past Medical History Attestation: Yes The following information was validated with the patient. Source: patient Medical history: Reports: asthma, cancer, COPD, hyperlipidemia, hypertension, thyroid disease, other Surgical history: Reports: appendectomy Psychiatric history: Reports: anxiety PATTERN REPAIR PERSON history: Reports: no PATTERN REPAIR PERSON history - Social History Smoking Status: Current every day smoker Smokeless Tobacco Status: No Alcohol use: Reports: none Drug use: Reports: marijuana Physical Exam - General Limitations: no limitations General appearance: alert, in no apparent distress, in distress (Pt appears anxious and is diaphoretic) - Head Head exam: atraumatic, normocephalic, normal inspection - Eye Eye exam: Present: normal appearance, PERRL, EOMI - ENT ENT exam: normal exam, normal oropharynx, mucous membranes moist - Neck Neck exam: Present: normal inspection, full ROM, trachea midline - Chest Chest inspection: Present: normal inspection, symmetric chest wall rise. Absent : tenderness, rash - Respiratory Respiratory exam: Present: other (diminished bases). Absent: respiratory distress, accessory muscle use - Cardiovascular Cardiovascular exam: Present: normal rhythm, tachycardia, normal heart sounds - Abdominal Exam Abdominal exam: Present: soft, Non-Tender. Absent: tenderness, distention, guarding, rebound, rigidity, organomegaly, Burton's sign, Rovsing's sign, tenderness at McBurney's Point - Extremities Exam Extremities exam: Present: normal inspection, full ROM, normal capillary refill. Absent: tenderness, pedal edema - Back Exam Back exam: Present: normal inspection, full ROM. Absent: tenderness - Neurological Exam Neurological exam: Present: alert, oriented X3 - Psychiatric Psychiatric exam: Present: anxious - Skin Skin exam: Present: intact, normal color, diaphoresis Course Course Narrative: Female patient presents emergency department complaining of sweating. Also complaining of feeling like her heart is racing. Has never happened before. Does have a history of lung cancer with a recent right lower lobe resection. No fevers or chills. No cardiac history. States that she does know she has fluid around her lungs. Patient is diaphoretic and tachycardic. She is in SVT at this time. Lung sounds are clear. No signs of edema to her extremities. Patient was assisted to a vagal maneuver. This did not convert the patient into a sinus tachycardia. Patient's mucous membranes are tacky. We will provide patient with a liter of fluid. We will also do basic cardiac workup inclusive of a CTA of her chest. Even after patient was cardioverted the patient did have a gomez appearance. She has a significant amount of comorbidities. We will withhold beta blockers at this time however if she does have an increase in her heart rate again we will divide her with 5 mg of Lopressor. Patient was initially hypotensive after her cardioversion. - Reevaluation(s) Reevaluation #1: Patient remained in sinus tachycardia throughout her time here. Did not have another episode of SVT. CTA of patient's chest showed no signs of a pulmonary embolism. We will admit patient to the hospitalist. Patient is agreeable with this. - Consultations Consultation #1: I spoke with Dr. Dc with cardiology. He had no further recommendations. Time: 17:20 Vital Signs Temperature 98.1 F 11/27/17 13:13 Pulse Rate 181 11/27/17 13:13 Respiratory Rate 16 11/27/17 13:13 Blood Pressure 122/77 11/27/17 13:13 O2 Sat by Pulse Oximetry 95 11/27/17 13:13 Temperature 98.1 F 11/27/17 13:20 Pulse Rate 97 11/27/17 15:34 Respiratory Rate 16 11/27/17 15:34 Blood Pressure 129/88 11/27/17 15:34 O2 Sat by Pulse Oximetry 97 11/27/17 15:34 Oxygen Delivery Oxygen Delivery Room Air Medical Decision Making - Medical Records Medical records reviewed: Yes I reviewed the patient's medical records. - Lab Data Lab results reviewed: Yes I reviewed the patient's lab results. Result diagrams: 11/27/17 13:25 11/27/17 13:25 Lab Results 11/27/17 11/27/17 11/27/17 Range/Units 13:25 13:25 13:25 WBC 12.0 H (4.3-11.1) K/mcL RBC 6.04 H (3.82-4.97) M/mcL Hgb 17.4 H (11.5-15.4) g/dL Hct 53.4 H (35.3-44.9) % MCV 88.4 (83.0-100.0) fL MCH 28.8 (28.0-33.3) pg MCHC 32.6 (31.6-35.5) g/dL RDW 14.5 (11.5-14.5) % Plt Count 292 (140-400) K/mcL MPV 11.4 (9.4-12.4) fL Immature Gran % 0.2 (0-4) % Seg Neutrophils % 56.4 % Lymphocytes % 35.4 % Monocytes % 6.6 % Eosinophils % 1.0 % Basophils % 0.4 % Neutrophils # 6.8 (1.6-8.9) K/mcL Lymphocytes # 4.3 (0.6-4.6) K/mcL Monocytes # 0.8 (0.0-1.3) K/mcL Eosinophils # 0.1 (0.0-0.6) K/mcL Basophils # 0.1 (0.0-0.2) K/mcL PT 10.8 (9.4-12.1) Seconds INR 1.0 APTT 28.9 (26.0-36.0) Seconds Sodium 138 (136-145) mEq/L Potassium 4.0 (3.5-5.1) mEq/L Chloride 102 (98-107) mEq/L Carbon Dioxide 27 (23-29) mEq/L BUN 23 (8-23) mg/dL Creatinine 1.20 (0.60-1.20) mg/dL Est GFR ( Amer) 55 L (> 60) Est GFR (Non-Af Amer) 46 L (> 60) BUN/Creatinine Ratio 19 (6-26) Glucose 133 H (70-105) mg/dL Calculated Osmolality 292 (280-300) Calcium 10.1 (8.6-10.3) mg/dL Magnesium 1.7 (1.6-2.6) mg/dL Troponin I 0.03 (< 0.04) ng/mL TSH 2.166 (0.340-5.600) mcIU/mL Urine Color (Yellow) Urine Clarity (Clear) Urine pH (5.0-8.0) pH Units Ur Specific [place] (1.010-1.025) Urine Protein (Neg-Trace) mg/dL Urine Glucose (UA) (Normal) mg/dL Urine Ketones (Negative) mg/dL Urine Blood (Negative) Urine Nitrite (Negative) Urine Bilirubin (Negative) Urine Urobilinogen (Normal) mg/dL Ur Leukocyte Esterase (Negative) Urine Microscopic RBC (0-3) per hpf Urine Microscopic WBC (0-3) per hpf Ur Squamous Epith Cells (None-Few) per lpf Urine Bacteria (None-Few) per hpf Hyaline Casts (None-Few) per lpf Ur Culture Indicated? (NO) 11/27/17 Range/Units 14:17 WBC (4.3-11.1) K/mcL RBC (3.82-4.97) M/mcL Hgb (11.5-15.4) g/dL Hct (35.3-44.9) % MCV (83.0-100.0) fL MCH (28.0-33.3) pg MCHC (31.6-35.5) g/dL RDW (11.5-14.5) % Plt Count (140-400) K/mcL MPV (9.4-12.4) fL Immature Gran % (0-4) % Seg Neutrophils % % Lymphocytes % % Monocytes % % Eosinophils % % Basophils % % Neutrophils # (1.6-8.9) K/mcL Lymphocytes # (0.6-4.6) K/mcL Monocytes # (0.0-1.3) K/mcL Eosinophils # (0.0-0.6) K/mcL Basophils # (0.0-0.2) K/mcL PT (9.4-12.1) Seconds INR APTT (26.0-36.0) Seconds Sodium (136-145) mEq/L Potassium (3.5-5.1) mEq/L Chloride (98-107) mEq/L Carbon Dioxide (23-29) mEq/L BUN (8-23) mg/dL Creatinine (0.60-1.20) mg/dL Est GFR ( Amer) (> 60) Est GFR (Non-Af Amer) (> 60) BUN/Creatinine Ratio (6-26) Glucose (70-105) mg/dL Calculated Osmolality (280-300) Calcium (8.6-10.3) mg/dL Magnesium (1.6-2.6) mg/dL Troponin I (< 0.04) ng/mL TSH (0.340-5.600) mcIU/mL Urine Color Yellow (Yellow) Urine Clarity Clear (Clear) Urine pH 6.5 (5.0-8.0) pH Units Ur Specific [place] 1.015 (1.010-1.025) Urine Protein 100 H (Neg-Trace) mg/dL Urine Glucose (UA) Normal (Normal) mg/dL Urine Ketones Negative (Negative) mg/dL Urine Blood Negative (Negative) Urine Nitrite Negative (Negative) Urine Bilirubin Negative (Negative) Urine Urobilinogen Normal (Normal) mg/dL Ur Leukocyte Esterase Moderate H (Negative) Urine Microscopic RBC 3-5 H (0-3) per hpf Urine Microscopic WBC 30-50 H (0-3) per hpf Ur Squamous Epith Cells Many H (None-Few) per lpf Urine Bacteria None Seen (None-Few) per hpf Hyaline Casts None Seen (None-Few) per lpf Ur Culture Indicated? NO. A (NO) - Radiology Data Radiology results reviewed: Yes I reviewed the patient's radiology results. Chest X-Ray 11/27/17 13:33 IMPRESSION: Status post partial right lung resection. Stable elevation of the right hemidiaphragm. No acute cardiopulmonary disease. D/ / Guille Garcia MD / Guille Garcia MD Interpreting Provider: Guille Garcia MD Chest CTA 11/27/17 13:34 IMPRESSION: 1. Postsurgical changes are noted from a right lower lobectomy. No evidence of local tumor recurrence or metastatic disease. 2. Emphysema. 3. No evidence of a pulmonary embolism. D/ /27/2017 16:40:59 Jose Junior MD / hansel Interpreting Provider: Jose Junior MD - EKG Data EKG #1 EKG attestation: Yes I reviewed and interpreted this EKG. EKG results narrative: SVT at a rate of 184. NH interval is 131. QRS duration is 84. QT is 268. QTC is 469. No signs of ischemia. EKG #2 EKG attestation: Yes I reviewed and interpreted this EKG. EKG results narrative: Repeat EKG after patient converted as a sinus tachycardia at a rate of 105. NH interval is 168. QRS duration is 76. QT is 338. QTC is 447. Does have ischemia. There is T-wave inversion in lead aVR. This was on previous EKG dated 06/06/2017. No signs of acute ischemia. Attestation Statement - Attestation Attestation: I, Jori Goodson DO, examined this patient [id number] and my medical decision-making was reviewed with Dr. Tomasa Mcgovern, Resident Physician. I agree with the documented findings, disposition and treatment plan as described except to the extent set forth below. Please see my progress notes for details.
[2017-11-27 13:57] LABS: Basophils # 0.1 K/mcL (0.0-0.2); Basophils % 0.4 %; Eosinophils # 0.1 K/mcL (0.0-0.6); Hematocrit 53.4 % (35.3-44.9); Hemoglobin 17.4 g/dL (11.5-15.4); Immature Granulocytes % 0.2 % (0-4); Lymphocytes # 4.3 K/mcL (0.6-4.6); Lymphocytes % 35.4 %; Mean Corpuscular HGB Conc 32.6 g/dL (31.6-35.5); Mean Corpuscular Hemoglobin 28.8 pg (28.0-33.3); Mean Corpuscular Volume 88.4 fL (83.0-100.0); Mean Platelet Volume 11.4 fL (9.4-12.4); Monocytes # 0.8 K/mcL (0.0-1.3); Monocytes % 6.6 %; Neutrophils # 6.8 K/mcL (1.6-8.9); Platelet Count 292 K/mcL (140-400); Red Blood Count 6.04 M/mcL (3.82-4.97); Red Cell Distribution Width 14.5 % (11.5-14.5); Segmented Neutrophils % 56.4 %
[2017-11-27 14:04] LABS: Prothrombin Time 10.8 Seconds (9.4-12.1)
[2017-11-27 14:07] LABS: Activated Partial Thrombo Time 28.9 Seconds (26.0-36.0)
[2017-11-27 14:15] LABS: Calcium 10.1 mg/dL (8.6-10.3); Magnesium 1.7 mg/dL (1.6-2.6); Troponin I 0.03 ng/mL (< 0.04)
[2017-11-27 14:28] LABS: Thyroid Stimulating Hormone 2.166 mcIU/mL (0.340-5.600)
[2017-11-27 14:28] LABS: Bilirubin,Urine Negative (Negative); Blood,Urine Negative (Negative); Clarity,Urine Clear (Clear); Color,Urine Yellow (Yellow); Glucose,Urine (UA) Normal (Normal); Ketones,Urine Negative (Negative); Leukocyte Esterase,Urine Moderate (Negative); Nitrite,Urine Negative (Negative); PH,Urine 6.5 pH Units (5.0-8.0); Protein,Urine 100 mg/dL (Neg-Trace); Specific Gravity,Urine 1.015 (1.010-1.025); Urobilinogen,Urine Normal (Normal)
--- NOTE | 2017-11-27 14:29 | Emergency Department Note ---
Disposition Clinical Impression: Supraventricular tachycardia, Lung cancer, Shortness of breath Disposition: Admitted As Inpatient Condition: Fair Referrals: Nicholas Robb MD [Non-Partnered Physician] - Forms: ED Satisfaction Letter Time of Disposition: 16:45 General Adult HPI - General Chief complaint: ED Arrhythmia/Palpitations Stated complaint: Chest burning; clammy Time Seen by Provider: 11/27/17 13:18 Source: patient Limitations: no limitations - History of Present Illness Pain Scale: 0 - Related Data Home Medications Medication Instructions Recorded Confirmed Levothyroxine [Synthroid] 50 mcg PO 0630 06/26/17 07/30/17 Olodaterol HCl [Striverdi Respimat] 1 puff IH DAILY 06/26/17 07/30/17 Ibuprofen [Motrin] 600 mg PO TID PRN 07/30/17 07/30/17 raNITIdine HCl [Zantac] 150 mg PO BID 07/30/17 07/30/17 Albuterol Sulfate [Ventolin Hfa] 2 puff IH Q6H PRN 11/27/17 11/27/17 Budesonide/Formoterol 160/4.5 2 puff IH BIDR 11/27/17 11/27/17 [Symbicort 160/4.5] Lisinopril [Zestril] 5 mg PO DAILY 11/27/17 11/27/17 Montelukast [Singulair] 10 mg PO DAILY 11/27/17 11/27/17 Nabumetone [Relafen] 500 mg PO BID 11/27/17 11/27/17 Paroxetine [Paxil] 30 mg PO DAILY 11/27/17 11/27/17 Previous Rx's Medication Instructions Recorded Cyclobenzaprine [Flexeril] 10 mg PO BID #20 tablet 09/16/17 Allergies Allergy/AdvReac Type Severity Reaction Status Date / Time gabapentin Allergy Rash Verified 07/30/17 13:58 Penicillins Allergy Hives Verified 07/30/17 13:58 pregabalin [From Lyrica] Allergy Rash Verified 07/30/17 13:58 Past Medical History - Past Medical History Medical history: Reports: asthma, cancer, COPD, hyperlipidemia, hypertension, thyroid disease, other Surgical history: Reports: appendectomy Psychiatric history: Reports: anxiety RN ACLS history: Reports: no RN ACLS history - Social History Smoking Status: Current every day smoker Smokeless Tobacco Status: No Alcohol use: Reports: none Drug use: Reports: marijuana Physical Exam - General Limitations: no limitations General appearance: alert, in no apparent distress Course Vital Signs Temperature 98.1 F 11/27/17 13:13 Pulse Rate 181 11/27/17 13:13 Respiratory Rate 16 11/27/17 13:13 Blood Pressure 122/77 11/27/17 13:13 O2 Sat by Pulse Oximetry 95 11/27/17 13:13 Temperature 98.1 F 11/27/17 13:20 Pulse Rate 97 11/27/17 15:34 Respiratory Rate 16 11/27/17 15:34 Blood Pressure 129/88 11/27/17 15:34 O2 Sat by Pulse Oximetry 97 11/27/17 15:34 Oxygen Delivery Oxygen Delivery Room Air Medical Decision Making - Lab Data Result diagrams: 11/27/17 13:25 11/27/17 13:25 Lab Results 11/27/17 11/27/17 11/27/17 Range/Units 13:25 13:25 13:25 WBC 12.0 H (4.3-11.1) K/mcL RBC 6.04 H (3.82-4.97) M/mcL Hgb 17.4 H (11.5-15.4) g/dL Hct 53.4 H (35.3-44.9) % MCV 88.4 (83.0-100.0) fL MCH 28.8 (28.0-33.3) pg MCHC 32.6 (31.6-35.5) g/dL RDW 14.5 (11.5-14.5) % Plt Count 292 (140-400) K/mcL MPV 11.4 (9.4-12.4) fL Immature Gran % 0.2 (0-4) % Seg Neutrophils % 56.4 % Lymphocytes % 35.4 % Monocytes % 6.6 % Eosinophils % 1.0 % Basophils % 0.4 % Neutrophils # 6.8 (1.6-8.9) K/mcL Lymphocytes # 4.3 (0.6-4.6) K/mcL Monocytes # 0.8 (0.0-1.3) K/mcL Eosinophils # 0.1 (0.0-0.6) K/mcL Basophils # 0.1 (0.0-0.2) K/mcL PT 10.8 (9.4-12.1) Seconds INR 1.0 APTT 28.9 (26.0-36.0) Seconds Sodium 138 (136-145) mEq/L Potassium 4.0 (3.5-5.1) mEq/L Chloride 102 (98-107) mEq/L Carbon Dioxide 27 (23-29) mEq/L BUN 23 (8-23) mg/dL Creatinine 1.20 (0.60-1.20) mg/dL Est GFR ( Amer) 55 L (> 60) Est GFR (Non-Af Amer) 46 L (> 60) BUN/Creatinine Ratio 19 (6-26) Glucose 133 H (70-105) mg/dL Calculated Osmolality 292 (280-300) Calcium 10.1 (8.6-10.3) mg/dL Magnesium 1.7 (1.6-2.6) mg/dL Troponin I 0.03 (< 0.04) ng/mL TSH 2.166 (0.340-5.600) mcIU/mL Urine Color (Yellow) Urine Clarity (Clear) Urine pH (5.0-8.0) pH Units Ur Specific [place] (1.010-1.025) Urine Protein (Neg-Trace) mg/dL Urine Glucose (UA) (Normal) mg/dL Urine Ketones (Negative) mg/dL Urine Blood (Negative) Urine Nitrite (Negative) Urine Bilirubin (Negative) Urine Urobilinogen (Normal) mg/dL Ur Leukocyte Esterase (Negative) Urine Microscopic RBC (0-3) per hpf Urine Microscopic WBC (0-3) per hpf Ur Squamous Epith Cells (None-Few) per lpf Urine Bacteria (None-Few) per hpf Hyaline Casts (None-Few) per lpf Ur Culture Indicated? (NO) 11/27/17 Range/Units 14:17 WBC (4.3-11.1) K/mcL RBC (3.82-4.97) M/mcL Hgb (11.5-15.4) g/dL Hct (35.3-44.9) % MCV (83.0-100.0) fL MCH (28.0-33.3) pg MCHC (31.6-35.5) g/dL RDW (11.5-14.5) % Plt Count (140-400) K/mcL MPV (9.4-12.4) fL Immature Gran % (0-4) % Seg Neutrophils % % Lymphocytes % % Monocytes % % Eosinophils % % Basophils % % Neutrophils # (1.6-8.9) K/mcL Lymphocytes # (0.6-4.6) K/mcL Monocytes # (0.0-1.3) K/mcL Eosinophils # (0.0-0.6) K/mcL Basophils # (0.0-0.2) K/mcL PT (9.4-12.1) Seconds INR APTT (26.0-36.0) Seconds Sodium (136-145) mEq/L Potassium (3.5-5.1) mEq/L Chloride (98-107) mEq/L Carbon Dioxide (23-29) mEq/L BUN (8-23) mg/dL Creatinine (0.60-1.20) mg/dL Est GFR ( Amer) (> 60) Est GFR (Non-Af Amer) (> 60) BUN/Creatinine Ratio (6-26) Glucose (70-105) mg/dL Calculated Osmolality (280-300) Calcium (8.6-10.3) mg/dL Magnesium (1.6-2.6) mg/dL Troponin I (< 0.04) ng/mL TSH (0.340-5.600) mcIU/mL Urine Color Yellow (Yellow) Urine Clarity Clear (Clear) Urine pH 6.5 (5.0-8.0) pH Units Ur Specific [place] 1.015 (1.010-1.025) Urine Protein 100 H (Neg-Trace) mg/dL Urine Glucose (UA) Normal (Normal) mg/dL Urine Ketones Negative (Negative) mg/dL Urine Blood Negative (Negative) Urine Nitrite Negative (Negative) Urine Bilirubin Negative (Negative) Urine Urobilinogen Normal (Normal) mg/dL Ur Leukocyte Esterase Moderate H (Negative) Urine Microscopic RBC 3-5 H (0-3) per hpf Urine Microscopic WBC 30-50 H (0-3) per hpf Ur Squamous Epith Cells Many H (None-Few) per lpf Urine Bacteria None Seen (None-Few) per hpf Hyaline Casts None Seen (None-Few) per lpf Ur Culture Indicated? NO. A (NO) Critical Care Time Critical Care Time: Yes Total Critical Care Time: 35 Attestation: Critical care performed: Time is exclusive of separately billable procedures. Time includes: direct patient care, patient reassessment, coordination of patient care, interpretation of data (laboratory data, radiology data, and respiratory data), review of patient's medical records, medical consultation and documentation of patient care. Procedures included in critical care time: Procedures excluded from critical care time: Attestation Statement - Attestation Attestation: I, Jori Goodson DO, examined this patient [id number] and my medical decision-making was reviewed withDrSabina Mcgovern Resident Physician. I agree with the documented findings, disposition and treatment plan as described except to the extent set forth below. Please see my progress notes for details. 62-year-old female presents emergency room because of diaphoresis chest discomfort and pain. Patient brought in by personal vehicle. Triage patient had a heart rate greater than 160. She did appear to be pale and diaphoretic and uncomfortable. She denied any shortness of breath headache vision changes nausea vomiting or diarrhea. Denies any fevers or chills. No recent illnesses. Patient did just have a right partial lobectomy of the lung secondary to lung cancer. He has not started chemoradiation therapy yet. Patient has noticed the symptoms progressively getting worse over the last several days and trapezius have the palpitations shortness of breath and diaphoresis on and off for the last 48 hours. On initial physical exam the patient's heart rate is elevated in the 180 range. Immediately IV access was obtained along with fluids and labs were collected. Patient was asked to vagal and converted to a heart rate of 110 to 1:15. Patient will be fluid resuscitated this time. Because the concern of the recent lobectomy as well as a cancer diagnosis patient had bedside point of care ultrasound utilized to visualize the pericardium. Patient had what was difficult to differentiate as a scant pericardial effusion versus an anatomical fat pad seen. She had no visible signs of right ventricular heart strain or collapse or septal wall bowing. Patient did not have any visible signs of large lytic examination lungs at this time based on quick bedside point of care ultrasound. Multiple repeat EKGs have been collected showing no acute signs of ST segment elevation but is stable sinus tachycardia. Screening labs will be completed CBC chemistry troponin electrolytes along with a CT of the chest with angiography. Patient's differentiated discomfort and shortness of breath most likely secondary to the tachycardia will require admission. Patient has required seed all of her care at this facility. We will continue to monitor here until treatment course is established. Patient is otherwise clinically stable despite concerning presentation. See detailed documentation of the physical exam, medical intervention, medical decision-making and disposition the resident physician's note. On physical exam no stridor no trismus. Skin is clammy to touch. Lungs are clear heart is tachycardic and appears to be regular. EKG initially was consistent with SVT and converted to sinus tachycardia. Abdomen is soft nontender nondistended no guarding no rigidity. She has symmetric extremities bilaterally with no acute signs of deficit or abnormality. See detailed documentation of the critical-care need an assessment. Patient had approximately 35 minutes critical care applied secondary to cardioversion as well as cardiac evaluation.
[2017-11-27 14:30] LABS: Bacteria,Urine None Seen per hpf (None-Few); Hyaline Casts,Urine None Seen per lpf (None-Few); Squamous Epithelial Cell,Urine Many per lpf (None-Few); WBC,Urine 30-50 per hpf (0-3)
[2017-11-27] MEDS ORDERED: Naloxone 0.4 MG/ML INJ IVP PRN (16:28)
--- NOTE | 2017-11-27 17:09 | Internal Med History&Physical ---
Date of Encounter: 11/27/17 Time of Encounter: 16:40 Internal Medicine - H&P: HPI Chief complaint: palpitation Admitted From: Home History of present illness: Ms. To is a 62 year old female with past medical history of hypertension, COPD, stage IIB non-small cell lung cancer status post right lower lobe resection, presented to the ED with complaints of palpitation and diaphoresis. She states that she developed nausea and vomiting yesterday after supper, vomiting about 4-5 times overnight, nonbilious/nonbloody. Sick contact from family member who recently had viral gastritis. This morning when she woke up, she developed diaphoresis and palpitation and decided to come to the ED for further evaluation. Associated with shortness of breath but without any cough or sputum production. No chest pain, orthopnea, PND, or leg swelling. Denies any abdominal pain, change in bowel habits, dysuria, urinary frequency, or hematuria. Did not have any episodes like this in the past. She was afebrile with a heart rate of 181. Blood pressure was stable at 122/77. EKG showed SVT without ST elevations. She was given IV fluid and advised to perform vagal maneuver which aborted SVT and she return to sinus tachycardia. Other workup showed leukocytosis of 12, creatinine 1.2 (based around 0.7 -0.8), and normal troponin, electrolytes, and TSH. Urinalysis showed moderate amount of leukocyte esterase along with many epithelial cells. CT angiogram of the chest was subsequently done which did not reveal any evidence of PE or pneumonia. She is admitted for observation. Past Med Surg Social Fam HX - Past Medical History Attestation: Yes The following information was validated with the patient. Medical history: asthma, cancer, COPD, hyperlipidemia, hypertension, thyroid disease, other Additional medical history: nonsmall cell carcinoma. hypothyroidism Psychiatric history: anxiety - Past Surgical History Surgical History: appendectomy Additional surgical history: D&C, tubal - Social History Smoking Status: Current every day smoker Smokeless Tobacco Status: No Alcohol use: none Drug use: marijuana - Family History Mother Hx Family Cancer: Yes Internal Medicine - H&P: Meds Levothyroxine [Synthroid] 50 mcg PO 0630 06/26/17 [History] Olodaterol HCl [Striverdi Respimat] 1 puff IH DAILY 06/26/17 [History] Ibuprofen [Motrin] 600 mg PO TID PRN 07/30/17 [History] raNITIdine HCl [Zantac] 150 mg PO BID 07/30/17 [History] Cyclobenzaprine [Flexeril] 10 mg PO BID #20 tablet 09/16/17 [Rx] Albuterol Sulfate [Ventolin Hfa] 2 puff IH Q6H PRN 11/27/17 [History] Budesonide/Formoterol 160/4.5 [Symbicort 160/4.5] 2 puff IH BIDR 11/27/17 [ History] Lisinopril [Zestril] 5 mg PO DAILY 11/27/17 [History] Montelukast [Singulair] 10 mg PO DAILY 11/27/17 [History] Nabumetone [Relafen] 500 mg PO BID 11/27/17 [History] Paroxetine [Paxil] 30 mg PO DAILY 11/27/17 [History] 3 Allergy/AdvReac Type Severity Reaction Status Date / Time gabapentin Allergy Rash Verified 07/30/17 13:58 Penicillins Allergy Hives Verified 07/30/17 13:58 pregabalin [From Lyrica] Allergy Rash Verified 07/30/17 13:58 All Systems PM: A 10-system review of systems was performed and is negative for pertinent findings except as documented above in the HPI. - Constitutional Vitals: Temp Pulse Resp BP Pulse Ox 98.1 F 97 16 129/88 97 11/27/17 13:20 11/27/17 15:34 11/27/17 15:34 11/27/17 15:34 11/27/17 15:34 Exam: General: Alert and oriented, not in acute distress. HEENT:EOM, pupils equal, round and reactive. Cardiovascular:Normal S1 & S2, No JVD. Pulse regular and normal rate Lungs: clear to auscultation, no wheezes/rales Abdomen:Soft, non-tender, no rigidity. Extremities:No deformity or swelling Neurological:Normal cognition and motor skills. Non-focal Skin:Normal color, no rash, no lesions. Pulses:Carotid and radial pulses normal +2. Rest of the physical exam is non contributory Internal Med - H&P Results - Labs CBC & Chem 7: 11/27/17 13:25 11/27/17 13:25 - Assessment and plan (1) Supraventricular tachycardia Current Visit: Yes Status: Acute Assessment and plan: Presented with diaphoresis and palpitation with the heart rate of 181. Occurred in the setting of volume depletion from viral gastritis Converted to sinus rhythm after IVF and vagal maneuver 1st troponin -ve, EKG no ST elevations, electrolytes WNL, TSH normal IVF for MILTON as below telemetry overnight trend troponin Echocardiogram cardiology called from the ED (2) MILTON (acute kidney injury) Current Visit: Yes Status: Acute Assessment and plan: likely due to volume depletion secondary to viral gastritis IV fluid overnight and monitor creatinine Avoid nephrotoxins (3) Viral gastritis Current Visit: Yes Status: Acute Assessment and plan: Symptomatically management (4) Hypertension Current Visit: Yes Status: Acute Assessment and plan: Hold off on DYLLAN-i in the setting of MILTON Qualifiers: Hypertension type: essential hypertension Qualified Code(s): I10 - Essential (primary) hypertension (5) Primary lung cancer Current Visit: No Status: Acute Assessment and plan: Status post resection, declined further chemoradiation. Qualifiers: Laterality: right Qualified Code(s): C34.91 - Malignant neoplasm of unspecified part of right bronchus or lung (6) DVT prophylaxis Current Visit: Yes Status: Acute Assessment and plan: SCDs - Time Spent With Patient Total time spent is greater than 50% in coordination of care (as documented) at patient's floor/unit and/or counseling patient:
[2017-11-27] MEDS ORDERED: Ondansetron 4 MG/2 ML VIAL IVP PRN (17:12)
--- NOTE | 2017-11-27 17:37 | Electrocardiograph Report ---
[facility] Test Date: 2017-11-27 Pat Name: Yue To Department: Room: 2A22 Gender: F Tannery Gummer: : 1955 Requested By: Jori Goodson Order Number: [id number] Reading MD: Lance James Measurements Intervals [place] Rate: 118 P: 68 RI: 173 QRS: 240 QRSD: 80 T: 57 QT: 293 QTc: 411 Interpretive Statements Sinus tachycardia Right atrial enlargement Left anterior fascicular block Right ventricular hypertrophy Electronically Signed On 11-27-2017 17:35:29 EDT by Lance James
[2017-11-27] MEDS ORDERED: Acetaminophen 325 MG TABLET PO PRN (18:26)
[2017-11-27] MEDS: 0.9 % Sodium Chloride 1,000 ML IVC SCH (18:43)
[2017-11-27] MEDS: Famotidine 20 MG TABLET PO SCH (19:40)
[2017-11-27] MEDS: *HR* Acetaminophen w/Cod 300-30 mg 1 TAB TABLET PO PRN (19:40)
[2017-11-27] MEDS: Nicotine 21 MG PATCH.TD24 TD SCH (19:40)
[2017-11-27] MEDS: Budesonide/Formoterol 160/4.5 1 PUFF INH IH SCH (20:27)
[2017-11-27] MEDS ORDERED: Melatonin 3 MG TABLET PO PRN (21:00)
[2017-11-28 02:05] LABS: Basophils # 0.1 K/mcL (0.0-0.2); Basophils % 0.7 %; Eosinophils # 0.1 K/mcL (0.0-0.6); Eosinophils % 1.2 %; Hematocrit 43.3 % (35.3-44.9); Immature Granulocytes % 0.1 % (0-4); Lymphocytes # 2.9 K/mcL (0.6-4.6); Lymphocytes % 42.5 %; Mean Corpuscular HGB Conc 31.9 g/dL (31.6-35.5); Mean Corpuscular Hemoglobin 28.5 pg (28.0-33.3); Mean Corpuscular Volume 89.3 fL (83.0-100.0); Mean Platelet Volume 11.4 fL (9.4-12.4); Monocytes # 0.5 K/mcL (0.0-1.3); Monocytes % 7.6 %; Neutrophils # 3.3 K/mcL (1.6-8.9); Platelet Count 199 K/mcL (140-400); Red Blood Count 4.85 M/mcL (3.82-4.97); Red Cell Distribution Width 14.4 % (11.5-14.5); Segmented Neutrophils % 47.9 %
[2017-11-28 02:15] LABS: Hemoglobin 13.8 g/dL (11.5-15.4)
[2017-11-28 02:22] LABS: BUN/Creatinine Ratio 22 (6-26); Blood Urea Nitrogen 18 mg/dL (8-23); Calcium 8.8 mg/dL (8.6-10.3); Carbon Dioxide 26 mEq/L (23-29); Chloride 108 mEq/L (98-107); Glucose 108 mg/dL (70-105); Magnesium 1.8 mg/dL (1.6-2.6); Osmolality,Calculated 288 (280-300); Potassium 4.2 mEq/L (3.5-5.1); Sodium 138 mEq/L (136-145); eGFR For Non-African Americans > 60 (> 60)
[2017-11-28] MEDS: 0.9 % Sodium Chloride 1,000 ML IVC SCH (04:31)
[2017-11-28] MEDS: *HR* Acetaminophen w/Cod 300-30 mg 1 TAB TABLET PO PRN ×2 (04:41→11:34)
[2017-11-28] MEDS ORDERED: Patient Taking Own Medication 1 EACH IH SCH (09:00)
[2017-11-28] MEDS: Famotidine 20 MG TABLET PO SCH (09:29)
[2017-11-28] MEDS: Nicotine 21 MG PATCH.TD24 TD SCH (09:29)
--- NOTE | 2017-11-28 10:08 | Cardiology Consult Note ---
<Jarrett Rivera R - Last Filed: 11/28/17 10:10> Date of Encounter: 11/28/17 Time of Encounter: 10:03 Assessment and Plan (1) Supraventricular tachycardia Current Visit: Yes Status: Acute SVT on admission, HR 180s, broke with vagal maneuvers. Known COPD and lung cancer s/p RLL resection. K 4.2, Mag 1.8. TSH 2.166. 12 hr tele AVG HR 69, SR. Recommend Cardizem CD 120mg daily. Check TTE to evaluate structure and function. If no significant TTE findings, anticipate sign off with outpt EP follow-up to discuss if SVT ablation is warranted. (2) Elevated troponin Current Visit: Yes Status: Acute Troponins 0.03, 0.09, 0.07 in setting of SVT with HR 180s. Suspect demand ischemia, nondiagnostic for ACS. TTE to evaluate structure and function. No ischemic EKG changes. Risk factors for CAD include tobacco abuse and HTN. Denies chest pain. Can consider outpt stress test. Discussion w patient/family: The assessment and plan as outlined above was discussed with the patient and/or family members who expressed understanding and agreement. All questions were answered. Thank you for involving us in the care of your patient. Please call with any questions. I will discuss all the above with Dr. Velasquez and make changes as necessary. History of Present Illness Consult date: 11/28/17 Consult reason: SVT Chief complaint: palpitations History of present illness: Ms. To is a 62 year old female with PMH of HTN, COPD, stage IIB non-small cell lung cancer status post right lower lobe resection in June, presented to the ED with complaints of palpitations and diaphoresis. She developed nausea and vomiting 2 days ago, vomiting about 4-5 times overnight. Sick contact from family member who recently had viral gastritis. Yesterday morning when she woke up, she had diaphoresis and palpitations and came to ED. Associated with shortness of breath but without any cough or sputum production. Denies chest pain. In ED, found to be in SVT, HR 180s, broke with vagal maneuvers. Currently SR without complaints. Troponins 0.03, 0.09, 0.07. Cardiology consulted for further recs. Past Med Surg Social Fam HX - Past Medical History Medical history: asthma, cancer, COPD, hyperlipidemia, hypertension, thyroid disease, other Additional medical history: nonsmall cell carcinoma. hypothyroidism Psychiatric history: anxiety - Past Surgical History Surgical History: appendectomy Additional surgical history: D&C, tubal - Social History Smoking Status: Current every day smoker Packs per day: 1.5 Smokeless Tobacco Status: No Alcohol use: none Drug use: marijuana - Family History Mother Family Member Ethnicity: Non- Living Status: Age at : 50 Hx Family Cancer: Yes Brother Family Member Ethnicity: Non- Living Status: Age at : 56 Hx Family Cancer: Yes (BONE) Medications and Allergies Levothyroxine [Synthroid] 50 mcg PO 0630 06/26/17 [History] Olodaterol HCl [Striverdi Respimat] 1 puff IH DAILY 06/26/17 [History] Ibuprofen [Motrin] 600 mg PO TID PRN 07/30/17 [History] raNITIdine HCl [Zantac] 150 mg PO BID 07/30/17 [History] Cyclobenzaprine [Flexeril] 10 mg PO BID #20 tablet 09/16/17 [Rx] Albuterol Sulfate [Ventolin Hfa] 2 puff IH Q6H PRN 11/27/17 [History] Budesonide/Formoterol 160/4.5 [Symbicort 160/4.5] 2 puff IH BIDR 11/27/17 [ History] Montelukast [Singulair] 10 mg PO DAILY 11/27/17 [History] Nabumetone [Relafen] 500 mg PO BID 11/27/17 [History] Paroxetine [Paxil] 30 mg PO DAILY 11/27/17 [History] Acetaminophen w/Cod 300-30 mg [Tylenol w/Codeine #3] 1 each PO Q6HR 2 Days #8 tablet 11/28/17 [Rx] Diltiazem CD (24hr) [Cardizem CD] 120 mg PO DAILY #30 cap.er.24h 11/28/17 [Rx] 3 Allergy/AdvReac Type Severity Reaction Status Date / Time gabapentin Allergy Rash Verified 07/30/17 13:58 Penicillins Allergy Hives Verified 07/30/17 13:58 pregabalin [From Lyrica] Allergy Rash Verified 07/30/17 13:58 All Systems Review: The remainder of the systems were reviewed and are negative - Cardiovascular Cardiovascular: as per HPI, diaphoresis, dyspnea on exertion, palpitations - Respiratory Respiratory: dyspnea - Gastrointestinal Gastrointestinal: nausea Physical Examination Vital Signs, Last 4 Hours Temp Pulse Resp BP Pulse Ox 11/28/17 08:17 97.8 F 71 18 119/63 92 Vital Signs Temp Pulse Resp BP Pulse Ox 11/28/17 08:17 97.8 F 71 18 119/63 92 11/28/17 03:53 97.4 F L 69 18 104/67 91 11/27/17 22:57 98.7 F 79 18 114/75 93 11/27/17 20:27 16 96 11/27/17 19:12 99.1 F 90 18 124/69 94 11/27/17 15:34 97 16 129/88 97 11/27/17 14:00 100 18 111/85 11/27/17 13:40 97 11/27/17 13:34 110 18 113/65 97 11/27/17 13:29 129/44 11/27/17 13:20 98.1 F 187 20 109/74 95 11/27/17 13:13 98.1 F 181 16 122/77 95 Intake and Output 11/27/17 11/28/17 11/28/17 23:59 07:59 15:59 Intake Total 240 / 240 1250 / 1250 Output Total 0 / 0 Balance 240 / 240 1250 / 1250 0 / 0 Intake: IV Fluids 1000 / 1000 0.9 % Sodium Chloride 1,000 ML 1000 / 1000 @ 100 mls/hr IVC .Q10H JAMAAL Rx#: [id number] Oral 240 / 240 250 / 250 Output: Urine 0 / 0 Other: # Voids 1 1 Weight 86.364 kg General: Conversant, No Apparent Distress HEENT: Atraumatic, Normocephaly, Mucus Membranes Moist Neck: No JVD, Normal carotid pulses Cardiac: Reg Rate and Rhythm, Normal S1 and S2, No Murmur Lungs: Other (RLL diminished) Neuro: Alert and responsive, No focal deficits noted Abdomen: Soft, Non-Tender Skin: No rashes noted on visualized skin Musculoskeletal: No Chest Wall Tenderness Extremities: No Clubbing, No Cyanosis, No Edema, Normal Pulses Results 11/28/17 01:21 11/28/17 01:21 Lab Results 11/27/17 11/28/17 11/28/17 19:50 01:21 01:21 WBC 6.9 Hgb 13.8 D Hct 43.3 Plt Count 199 Sodium Potassium Chloride Carbon Dioxide BUN Creatinine Glucose Calcium Magnesium Troponin I 0.09 H* 0.07 H* 11/28/17 01:21 WBC Hgb Hct Plt Count Sodium 138 Potassium 4.2 Chloride 108 H Carbon Dioxide 26 BUN 18 Creatinine 0.81 Glucose 108 H Calcium 8.8 Magnesium 1.8 Troponin I Short CBC 11/28/17 11/27/17 Range/Units 01:21 13:25 WBC 6.9 12.0 H (4.3-11.1) K/mcL Hgb 13.8 D 17.4 H (11.5-15.4) g/dL Hct 43.3 53.4 H (35.3-44.9) % Plt Count 199 292 (140-400) K/mcL Neutrophils # 3.3 6.8 (1.6-8.9) K/mcL BMP 11/28/17 11/27/17 Range/Units 01:21 13:25 Sodium 138 138 (136-145) mEq/L Potassium 4.2 4.0 (3.5-5.1) mEq/L Chloride 108 H 102 (98-107) mEq/L Carbon Dioxide 26 27 (23-29) mEq/L BUN 18 23 (8-23) mg/dL Creatinine 0.81 1.20 (0.60-1.20) mg/dL Glucose 108 H 133 H (70-105) mg/dL Calcium 8.8 10.1 (8.6-10.3) mg/dL Cardiac Enzymes 11/28/17 11/27/17 11/27/17 Range/Units 01:21 19:50 13:25 Troponin I 0.07 H* 0.09 H* 0.03 (< 0.04) ng/mL Urine 11/27/17 Range/Units 14:17 Urine Color Yellow (Yellow) Urine Clarity Clear (Clear) Urine pH 6.5 (5.0-8.0) pH Units Ur Specific [place] 1.015 (1.010-1.025) Urine Protein 100 H (Neg-Trace) mg/dL Urine Glucose (UA) Normal (Normal) mg/dL Impressions Chest X-Ray 11/27/17 13:33 IMPRESSION: Status post partial right lung resection. Stable elevation of the right hemidiaphragm. No acute cardiopulmonary disease. D/ / Guille Garcia MD / Guille Garcia MD Interpreting Provider: Guille Garcia MD Chest CTA 11/27/17 13:34 IMPRESSION: 1. Postsurgical changes are noted from a right lower lobectomy. No evidence of local tumor recurrence or metastatic disease. 2. Emphysema. 3. No evidence of a pulmonary embolism. D/ / 11/27/2017 16:40:59 Jose Junior MD / hansel Interpreting Provider: Jose Junior MD Active Medications Acetaminophen (Tylenol) 650 mg PO Q6HR PRN PRN Reason: Mild Pain/Fever Stop: 05/29/18 18:27 Acetaminophen/Codeine Phosphate (Tylenol W/Codeine #3) 1 tab PO Q6HR PRN PRN Reason: Severe Pain Stop: 05/29/18 18:28 Last Admin: 11/28/17 04:41 Dose: 1 tab Albuterol Sulfate (Albuterol Inhaler) 2 puff IH Q6H PRN PRN Reason: Dyspnea Stop: 05/29/18 16:27 Budesonide/Formoterol Fumarate (Symbicort) 2 puff IH BIDR JAMAAL PRN Reason: Protocol Stop: 05/29/18 22:01 Last Admin: 11/27/17 20:27 Dose: 2 puff Cyclobenzaprine HCl (Flexeril) 10 mg PO BID JAMAAL Stop: 05/29/18 21:01 Last Admin: 11/28/17 09:29 Dose: 10 mg Famotidine (Pepcid) 20 mg PO BID JAMAAL Stop: 05/29/18 21:01 Last Admin: 11/28/17 09:29 Dose: 20 mg Levothyroxine Sodium (Synthroid) 50 mcg PO 0630 JAMAAL Stop: 05/30/18 06:31 Last Admin: 11/28/17 05:35 Dose: 50 mcg Melatonin (Melatonin) 6 mg PO HS PRN PRN Reason: Insomnia Stop: 05/29/18 21:01 Last Admin: 11/27/17 22:23 Dose: 6 mg Montelukast Sodium (Singulair) 10 mg PO DAILY JAMAAL Stop: 05/30/18 09:01 Last Admin: 11/28/17 09:29 Dose: 10 mg Naloxone HCl (Narcan) 0.4 mg IVP Q2MIN PRN PRN Reason: SEE COMMENTS Stop: 05/29/18 16:29 Nicotine (Nicoderm) 21 mg TD DAILY JAMAAL PRN Reason: Protocol Stop: 05/29/18 18:31 Last Admin: 11/28/17 09:29 Dose: 21 mg Ondansetron HCl (Zofran) 4 mg IVP Q8HR PRN; Protocol PRN Reason: Nausea And Vomiting Stop: 05/29/18 17:13 Paroxetine HCl (Paxil) 30 mg PO HS JAMAAL PRN Reason: Protocol Stop: 05/29/18 21:01 Last Admin: 11/27/17 19:41 Dose: 30 mg Pharmacy Profile Note (Patient Taking Own Medication) 1 each IH DAILY AJMAAL Stop: 05/30/18 09:01 Last Admin: 11/28/17 09:31 Dose: Not Given - EKG Interpretation EKG results cardiology: personally reviewed (SVT), other (12 hr tele AVG HR 69, SR) Consult Discharge Plan - Plan Referrals: Nicholas Robb MD [Primary Care Provider] - 12/11/17 10:30 am (Please follow up as schedule) Petey Stephens MD [Partnered Physician] - 12/05/17 1:45 pm (Please follow up as schedule...) Prescriptions: Acetaminophen w/Cod 300-30 mg [Tylenol w/Codeine #3] 1 each PO Q6HR 2 Days #8 tablet Diltiazem CD (24hr) [Cardizem CD] 120 mg PO DAILY #30 cap.er.24h <Estefany Velasquez - Last Filed: 11/28/17 13:13> Date of Encounter: 11/28/17 - Attending Attestation I personally interviewed and examined this patient. I have reviewed all the pertinent clinical, radiologic and laboratory findings. I agree with the findings, assessment and plan as outlined by the nurse practitioner with the following additional comments: 62F presents with palpitations. ECG on admission demonstrated SVT - vagal maneuvers reportedly terminated the rhythm. Patient asymptomatic presently at the bedside. Vital signs reviewed. Alert, oriented in NAD Exam unremarkable. Labs demonstrate electrolytes WNLs, normal TSH, flat elevated troponin CTA negative for PE AP: Palpitations: SVT demonstrated on presenting ECG reportedly terminated by vagal maneuvers. Echo demonstrated no concerning structural disease. Electrolytes, TSH normal. Recommend outpatient evaluation by EP. Troponins: Very mild, flat elevation of troponin representing demand ischemia in setting of SVT. Patient without chest pain. No ischemic ECG findings. Normal LVEF. Consider outpatient stress testing. Assessment and Plan Discussion w patient/family: The assessment and plan as outlined above was discussed with the patient and/or family members who expressed understanding and agreement. All questions were answered. Thank you for involving us in the care of your patient. Please call with any questions. History of Present Illness History of present illness: Ms. To is a 62 year old female All Systems Review: The remainder of the systems were reviewed and are negative Physical Examination Vital Signs, Last 4 Hours Temp Pulse Resp BP Pulse Ox 11/28/17 12:29 97.5 F L 78 18 130/90 95 Results 11/28/17 01:21 11/28/17 01:21 Lab Results 11/27/17 11/28/17 11/28/17 19:50 01:21 01:21 WBC 6.9 Hgb 13.8 D Hct 43.3 Plt Count 199 Sodium Potassium Chloride Carbon Dioxide BUN Creatinine Glucose Calcium Magnesium Troponin I 0.09 H* 0.07 H* 11/28/17 01:21 WBC Hgb Hct Plt Count Sodium 138 Potassium 4.2 Chloride 108 H Carbon Dioxide 26 BUN 18 Creatinine 0.81 Glucose 108 H Calcium 8.8 Magnesium 1.8 Troponin I
[2017-11-28] MEDS ORDERED: Diltiazem CD (24hr) 120 MG CAPSULE PO SCH (10:30)
[2017-11-28] MEDS: Budesonide/Formoterol 160/4.5 1 PUFF INH IH SCH (11:04)
--- NOTE | 2017-11-28 11:45 | Discharge Summary ---
- NOTES TO OUTPATIENT PROVIDER Notes to Outpatient Provider: Patient was admitted for SVT in the setting of volume depletion from viral gastritis. It converted to sinus rhythm after a vagal maneuver. Troponin was noted to be mildly elevated which is likely due to demand ischemia. She started on diltiazem 120 mg daily and also recommended to have outpatient evaluation for stress test as well as EP study. MILTON resolved with IV fluid. Date of Encounter: 11/28/17 Time of Encounter: 10:50 - Discharge Diagnosis (1) Supraventricular tachycardia Priority: Primary Status: Acute (2) MILTON (acute kidney injury) Priority: Secondary Status: Acute (3) Viral gastritis Priority: Secondary Status: Acute (4) Hypertension Priority: Secondary Status: Acute Qualifiers: Hypertension type: essential hypertension Qualified Code(s): I10 - Essential (primary) hypertension (5) Primary lung cancer Priority: Secondary Status: Acute Qualifiers: Laterality: right Qualified Code(s): C34.91 - Malignant neoplasm of unspecified part of right bronchus or lung (6) DVT prophylaxis Priority: Secondary Status: Acute Hospital course: Ms. To is a 62 year old female with past medical history of hypertension, COPD, stage IIB non-small cell lung cancer status post right lower lobe lobectomy, was admitted for palpitation. She was found to be in SVT in the setting of volume depletion from viral gastritis. It converted to sinus rhythm after a vagal maneuver. Troponin was noted to be mildly elevated which is likely due to demand ischemia. Echo was unremarkable. She started on diltiazem 120 mg daily per cardiology recommendation and also advised to have outpatient evaluation for stress test as well as EP study. MILTON resolved with IV fluid and since her blood pressure was noted to be normal, lisinopril was d/harry as diltiazem is newly added. Discharge discussed with: patient - Time Spent with Patient Total time spent providing and/or coordinating discharge services: Greater than 30 minutes - Discharge Medications Prescriptions: Acetaminophen w/Cod 300-30 mg [Tylenol w/Codeine #3] 1 each PO Q6HR 2 Days #8 tablet Diltiazem CD (24hr) [Cardizem CD] 120 mg PO DAILY #30 cap.er.24h Home Medications: Levothyroxine [Synthroid] 50 mcg PO 0630 06/26/17 [History] Olodaterol HCl [Striverdi Respimat] 1 puff IH DAILY 06/26/17 [History] Ibuprofen [Motrin] 600 mg PO TID PRN 07/30/17 [History] raNITIdine HCl [Zantac] 150 mg PO BID 07/30/17 [History] Cyclobenzaprine [Flexeril] 10 mg PO BID #20 tablet 09/16/17 [Rx] Albuterol Sulfate [Ventolin Hfa] 2 puff IH Q6H PRN 11/27/17 [History] Budesonide/Formoterol 160/4.5 [Symbicort 160/4.5] 2 puff IH BIDR 11/27/17 [ History] Montelukast [Singulair] 10 mg PO DAILY 11/27/17 [History] Nabumetone [Relafen] 500 mg PO BID 11/27/17 [History] Paroxetine [Paxil] 30 mg PO DAILY 11/27/17 [History] Acetaminophen w/Cod 300-30 mg [Tylenol w/Codeine #3] 1 each PO Q6HR 2 Days #8 tablet 11/28/17 [Rx] Diltiazem CD (24hr) [Cardizem CD] 120 mg PO DAILY #30 cap.er.24h 11/28/17 [Rx] Allergies/Adverse Reactions: 3 Allergy/AdvReac Type Severity Reaction Status Date / Time gabapentin Allergy Rash Verified 07/30/17 13:58 Penicillins Allergy Hives Verified 07/30/17 13:58 pregabalin [From Lyrica] Allergy Rash Verified 07/30/17 13:58 Date of admission: 11/27/17 16:46 Primary care physician: Nicholas Robb MD Consults: 11/27/17 17:23 Consult to Cardiology [CONS] Routine Comment: Consulting Provider: Cardiology Anderson Reason for Consult: svt Call Completed: Yes - Constitutional Vitals: Temp Pulse Resp BP Pulse Ox 97.8 F 71 18 119/63 92 11/28/17 08:17 11/28/17 08:17 11/28/17 08:17 11/28/17 08:17 11/28/17 08:17 Exam: General: Alert and oriented, not in acute distress. Cardiovascular:Normal S1 & S2, No JVD. Pulse regular and normal rate Lungs: clear to auscultation, no wheezes/rales Abdomen:Soft, non-tender, no rigidity. Extremities:No deformity or swelling Neurological:Normal cognition and motor skills. Non-focal - Patient Status Disposition: Home, Self-Care Condition: Good Functional capacity at discharge: independent ambulation Overall status at discharge: patient is progressing back to baseline - Discharge Instructions Follow Up With: Nicholas Robb MD [Primary Care Provider] - 12/11/17 10:30 am (Please follow up as schedule) Petey Stephens MD [Partnered Physician] - 12/05/17 1:45 pm (Please follow up as schedule...) - Diet and Activity Activity: resume usual activities as tolerated Diet: advance to your usual diet - VTE Documentation of Mechanical Device: Intermittent pneumatic compression device
[2017-11-28] MEDS ORDERED: Aspirin 81 MG TAB.CHEW PO SCH (12:15)
[2017-11-28 12:35] VITALS: BP 130/90
[2017-11-28 13:07] LABS: Chol/HDL Ratio 5.8 (0-4.9)
--- NOTE | 2017-11-28 14:00 | Event Note ---
Date of Encounter: 11/28/17 Time of Encounter: 13:54 The patient is a 62-year-old female who underwent right thoracotomy with right lower lobectomy for lung cancer on 06/26/2017. She was admitted with supraventricular tachycardia. Unfortunately, she continues to smoke one half pack of cigarettes per day AGAINST MEDICAL ADVICE. She was due to see me in the office today and so I stopped by to see her in the hospital instead. She does complain of numbness and tingling along her incision and in the anterior chest on the right. A CT scan of the chest done in the last week reveals some minor elevation of the right hemidiaphragm, which is secondary to the lobectomy. There is no fluid. There are the usual postoperative changes. No evidence of recurrent or secondary cancer. She has seen the oncologist, but does not wish to proceed with chemotherapy and/or radiation therapy. On physical exam her lungs are clear to percussion and auscultation. The incision is well healed and there are no signs of infection. The patient does have some element of post thoracotomy pain. I recommended that she treat this with Tylenol and/or ibuprofen. Exercise would also help. I strongly recommend that she quit smoking. I did tell her that she could be referred to pain management for possible intercostal nerve blocks. However, she does not want this at this time. This pain should continue to improve for the next year or 2. She can always see me in the office on a when necessary basis.
--- NOTE | 2017-11-29 18:42 | Electrocardiograph Report ---
[place] [id number] Test Date: 2017-11-27 Pat Name: Yue To Department: Room: 2A22 Gender: F Data Conversion Developer: : 1955 Requested By: Karla Mcgovern Order Number: [id number] Reading MD: Tremayne Horne Measurements Intervals [place] Rate: 111 P: 72 MI: 157 QRS: 246 QRSD: 81 T: 55 QT: 325 QTc: 442 Interpretive Statements Sinus tachycardia Biatrial enlargement Possible RV conduction delay Left axis deviation Electronically Signed On 11-29-2017 18:40:38 EDT by Tremayne Horne
--- NOTE | 2017-11-29 18:43 | Electrocardiograph Report ---
[address] [address] Test Date: 2017-11-27 Pat Name: Yue To Department: Room: 2A22 Gender: F Annual Giving Manager: : 1955 Requested By: Chris Mckeon Order Number: [id number] Reading MD: Tremayne Horne Measurements Intervals [place] Rate: 105 P: 73 PA: 168 QRS: 249 QRSD: 76 T: 58 QT: 338 QTc: 447 Interpretive Statements Sinus tachycardia Biatrial enlargement Possible RV conduction delay Electronically Signed On 11-29-2017 18:41:47 EDT by Tremayne Horne
== END 2017-11-28 14:50 | disposition home or self-care (01) ==
LOC: EMEROOARM 13:10 → 2ANU 13:10 → SUATTDRO 16:46 → 2ANU 17:00
PROVIDERS: ADMIT Internal Medicine; ATTEND Internal Medicine